=== PATIENT | female | born 1970 | race Two or more races ===

== ENCOUNTER 2023-11-04 00:49 | Emergency (ER) | payer MEDICAID ==
[~2023-11-04] VITALS: Ht 165.1 cm; Wt 121.8 kg
[2023-11-04 02:35] VITALS: TEMP 98.5; O2SAT 96
[2023-11-04] MEDS ORDERED: CYCL-614 PO (02:36)
[2023-11-04] MEDS: ONDANSETRON ODT 4 MG TAB PO ONE (02:44)
[2023-11-04] MEDS: MORPHINE SULFATE INJ 2 MG/ml SYRG IM ONE (02:47)
[2023-11-04 03:22] VITALS: BP 132/76; PULSE 78; RESP 18
== END 2023-11-04 03:29 | disposition home or self-care (01) ==
LOC: ER 00:49
DX: S82.841A Displaced bimalleolar fracture of right lower leg, initial encounter for closed fracture (principal); S70.01XA Contusion of right hip, initial encounter; R07.89 Other chest pain; E03.9 Hypothyroidism, unspecified; G89.29 Other chronic pain; M54.2 Cervicalgia; Z79.899 Other long term (current) drug therapy; W10.8XXA Fall (on) (from) other stairs and steps, initial encounter; Y93.89 Activity, other specified; Y92.89 Other specified places as the place of occurrence of the external cause; Y99.8 Other external cause status
CPT/HCPCS: 29515; 71045; 73502; 73610; 96372; 99284; J2270; Q0162

== ENCOUNTER 2023-11-21 11:04 | Emergency (ER) | payer MEDICAID ==
[~2023-11-21] VITALS: Ht 165.1 cm; Wt 116.8 kg
[~2023-11-21 11:04] MED LIST: CYCL-614 PO
[2023-11-21 11:52] VITALS: PULSE 91; RESP 16; O2SAT 98
[2023-11-21 12:25] LABS: Basophils # (auto) 0.1 10 ^3/uL (0-0.2); Eosinophils # (auto) 0.2 10 ^3/uL (0-0.8); Eosinophils % (auto) 1.8 % (0.0-7.0); Hematocrit 44.5 % (36.0-46.0); Hemoglobin 15.1 g/dL (12.2-16.2); Lymphocytes # (auto) 2.8 10 ^3/uL (0.4-5.4); Lymphocytes % (auto) 22.6 % (10.0-50.0); Mean Corpuscular Hemoglobin 30.3 pg (28.0-32.0); Mean Corpuscular Hgb Conc. 33.9 g/dL (32.0-36.0); Mean Corpuscular Volume 89.5 fL (80.0-100.0); Monocytes # (auto) 0.6 10 ^3/uL (0-1.3); Monocytes % (auto) 5.1 % (0.0-12.0); Neutrophils # (auto) 8.7 10 ^3/uL (1.6-8.6); Neutrophils % (auto) 69.5 % (37.0-80.0); Red Blood Cells 4.98 10^6/uL (4.0-5.20); Red Cell Distribution Width 14.1 % (11.8-14.3); White Blood Cell 12.6 10^3/uL (4.4-10.8)
[2023-11-21 12:44] LABS: INR 1.05 (0.9-1.15); Prothrombin Time 11.1 sec (9.3-11.8)
[2023-11-21 13:01] VITALS: BP 125/82; PULSE 81; RESP 18; TEMP 98.2; O2SAT 95
[2023-11-21 13:04] LABS: Alanine Aminotransferase 17 U/L (7-40); Albumin 4.6 g/dL (3.2-4.8); Alkaline Phosphatase 67 U/L (46-116); Anion Gap 7 (5-15); Aspartate Aminotransferase 11 U/L (13-40); BUN/Creatinine Ratio 8.2 (10.0-20.0); Bilirubin, Total 0.6 mg/dL (0.2-1.0); Blood Urea Nitrogen 8 mg/dL (9-23); Calcium 10.2 mg/dL (8.5-10.1); Carbon Dioxide 25 mmol/L (20-30); Chloride 105 mmol/L (98-107); Glucose 151 mg/dL (74-106); Potassium 3.8 mmol/L (3.5-5.1); Sodium 137 mmol/L (136-145); Total Protein 7.7 g/dL (5.7-8.2)
== END 2023-11-21 13:21 | disposition home or self-care (01) ==
LOC: ER 11:04
DX: S82.201A Unspecified fracture of shaft of right tibia, initial encounter for closed fracture (principal); S82.401A Unspecified fracture of shaft of right fibula, initial encounter for closed fracture; E07.9 Disorder of thyroid, unspecified; Z98.51 Tubal ligation status; W10.8XXA Fall (on) (from) other stairs and steps, initial encounter; Y93.01 Activity, walking, marching and hiking; Y92.89 Other specified places as the place of occurrence of the external cause; Y99.8 Other external cause status
CPT/HCPCS: 36415; 80053; 84484; 85025; 85610

== ENCOUNTER 2023-11-30 10:11 | Inpatient (IN) | payer MEDICAID ==
[2023-11-29] MEDS: SODIUM CHLORIDE 0.9% 1,000 ML IV SCH (21:50)
[~2023-11-30] VITALS: Ht 165.1 cm; Wt 129.5 kg
[2023-11-30 11:27] LABS: Basophils # (auto) 0.1 10 ^3/uL (0-0.2); Basophils % (auto) 1.1 % (0.0-2.0); Eosinophils # (auto) 0.2 10 ^3/uL (0-0.8); Eosinophils % (auto) 1.9 % (0.0-7.0); Hematocrit 44.8 % (36.0-46.0); Hemoglobin 15.2 g/dL (12.2-16.2); Lymphocytes # (auto) 2.4 10 ^3/uL (0.4-5.4); Lymphocytes % (auto) 19.7 % (10.0-50.0); Mean Corpuscular Hemoglobin 30.4 pg (28.0-32.0); Mean Corpuscular Volume 89.3 fL (80.0-100.0); Monocytes # (auto) 0.5 10 ^3/uL (0-1.3); Monocytes % (auto) 4.5 % (0.0-12.0); Neutrophils # (auto) 8.8 10 ^3/uL (1.6-8.6); Neutrophils % (auto) 72.8 % (37.0-80.0); Red Blood Cells 5.02 10^6/uL (4.0-5.20); Red Cell Distribution Width 14.3 % (11.8-14.3); White Blood Cell 12.2 10^3/uL (4.4-10.8)
[2023-11-30 11:28] LABS: Chloride 107 mmol/L (98-107); Potassium 3.7 mmol/L (3.5-5.1); Sodium 141 mmol/L (136-145)
[2023-11-30 11:29] LABS: Anion Gap 7 (5-15); Calcium 9.9 mg/dL (8.5-10.1); Carbon Dioxide 27 mmol/L (20-30)
[2023-11-30 11:34] LABS: BUN/Creatinine Ratio 7.6 (10.0-20.0); Blood Urea Nitrogen 7 mg/dL (9-23); Glucose 155 mg/dL (74-106)
[2023-11-30 11:52] LABS: INR 1.06 (0.9-1.15); Partial Thromboplastin Time 28.7 SEC (24.5-34.5); Prothrombin Time 11.2 sec (9.3-11.8)
[2023-11-30 13:25] VITALS: PULSE 88; RESP 17; O2SAT 95
[2023-11-30] MEDS ORDERED: NITROGLYCERIN 0.4 MG SL TAB SL PRN (13:30)
[2023-11-30] MEDS ORDERED: ONDANSETRON HCL 4 MG/2 ML VIAL IV PRN (13:30)
[2023-11-30] MEDS ORDERED: HYDROcodone-ACET 5/325MG TAB PO PRN (13:30)
[2023-11-30] MEDS ORDERED: DEXTROSE (50%) 50ML SYRG IV PRN (13:30)
[2023-11-30] MEDS ORDERED: MORPHINE SULFATE INJ 2 MG/ml SYRG IV PRN (13:30)
[2023-11-30 15:57] VITALS: BP 131/78; PULSE 83; RESP 18; TEMP 97.7; O2SAT 95
[2023-11-30 16:00] VITALS: PULSE 83; RESP 18; O2SAT 95
[2023-11-30] MEDS: ACCU-CHEK COMFORT CURVE STRIP VI SCH (17:00)
[2023-11-30] MEDS: MORPHINE SULFATE INJ 2 MG/ml SYRG IV PRN (17:33)
[2023-11-30] MEDS: InsuLIN REG 1unit/0.01ml Soln (100units/ml) SC SCH (19:35)
[2023-11-30 20:00] VITALS: PULSE 67; RESP 17; O2SAT 95
[2023-11-30 21:00] VITALS: BP 127/83; PULSE 67; RESP 17; TEMP 98.1; O2SAT 95
[2023-12-01] VITALS (7 sets, daily range): BP systolic 96–122; BP diastolic 48–68; PULSE 57–97; RESP 15–20; TEMP 97.5–99; O2SAT 94–97
[2023-12-01 06:24] LABS: Basophils # (auto) 0.1 10 ^3/uL (0-0.2); Basophils % (auto) 0.7 % (0.0-2.0); Eosinophils # (auto) 0.3 10 ^3/uL (0-0.8); Eosinophils % (auto) 2.9 % (0.0-7.0); Hematocrit 39.8 % (36.0-46.0); Hemoglobin 13.7 g/dL (12.2-16.2); Lymphocytes % (auto) 29.7 % (10.0-50.0); Mean Corpuscular Hemoglobin 30.6 pg (28.0-32.0); Mean Corpuscular Hgb Conc. 34.4 g/dL (32.0-36.0); Mean Corpuscular Volume 88.9 fL (80.0-100.0); Monocytes # (auto) 0.5 10 ^3/uL (0-1.3); Monocytes % (auto) 5.1 % (0.0-12.0); Neutrophils # (auto) 6.2 10 ^3/uL (1.6-8.6); Neutrophils % (auto) 61.6 % (37.0-80.0); Red Blood Cells 4.47 10^6/uL (4.0-5.20); Red Cell Distribution Width 14.4 % (11.8-14.3); White Blood Cell 10.1 10^3/uL (4.4-10.8)
[2023-12-01 06:25] LABS: Alanine Aminotransferase 13 U/L (7-40); Albumin 3.7 g/dL (3.2-4.8); Alkaline Phosphatase 54 U/L (46-116); Anion Gap 7 (5-15); Aspartate Aminotransferase 11 U/L (13-40); BUN/Creatinine Ratio 9.8 (10.0-20.0); Blood Urea Nitrogen 8 mg/dL (9-23); Calcium 9.1 mg/dL (8.7-10.4); Carbon Dioxide 27 mmol/L (20-30); Chloride 109 mmol/L (98-107); Glucose 130 mg/dL (74-106); Potassium 3.7 mmol/L (3.5-5.1); Sodium 143 mmol/L (136-145)
[2023-12-01 06:26] LABS: Bilirubin, Total 0.5 mg/dL (0.2-1.0); Total Protein 6.4 g/dL (5.7-8.2)
[2023-12-01] MEDS ORDERED: fentaNYL CITRATE 5 ML ONE (08:14)
[2023-12-01] MEDS ORDERED: PROPOFOL 10 MG/ML 20 ML IV ONE (09:07)
[2023-12-01] MEDS ORDERED: DexAMETHasone SOD PHOS 10MG/1ML VIAL INJ ONE (09:10)
[2023-12-01] MEDS ORDERED: ONDANSETRON HCL 4 MG/2 ML VIAL ONE (09:10)
[2023-12-01] MEDS ORDERED: MEPERIDINE HCL (25 MG/ML) 1ML VIAL ONE (09:11)
[2023-12-01] MEDS ORDERED: PHENYLEPHRINE HCL 10 MG/ML VL ONE (09:17)
[2023-12-01] MEDS: BUPIVACAINE 0.25% INJ 50ML VIAL ONE (09:50)
[2023-12-01] MEDS ORDERED: HYDROmorphone HCL 2 MG/ML VL/or syr IV PRN (10:15)
[2023-12-01] MEDS ORDERED: MEPERIDINE HCL (25 MG/ML) 1ML VIAL IV PRN (10:15)
[2023-12-01] MEDS: HYDROmorphone HCL 2 MG/ML VL/or syr ONE (10:24)
[2023-12-01] MEDS ORDERED: LEVO150T10 PO (13:32)
[2023-12-01] MEDS: ceFAZolin 2 GM/D5W50ml 50 ML IV SCH (16:57)
[2023-12-01] MEDS: DOCUSATE SOD 100 MG CAP PO PRN (21:41)
[2023-12-02] VITALS (7 sets, daily range): BP systolic 104–145; BP diastolic 61–71; PULSE 71–85; RESP 18–20; TEMP 98–98.8; O2SAT 94–98
[2023-12-02] MEDS: PANTOPRAZOLE 40 MG TAB PO SCH (05:55)
[2023-12-02] MEDS: ENOXAPARIN SOD 40 MG/0.4 ML SYRINGE SC SCH (10:11)
[2023-12-02] MEDS: LEVOTHYROXINE SODIUM 100 MCG/5 ML INJ IV SCH (10:11)
[2023-12-02] MEDS: HYDROcodone-ACET 10/325MG TAB PO PRN (11:31)
[2023-12-02] MEDS: MORPHINE SULFATE INJ 2 MG/ml SYRG IV ONE (18:53)
[2023-12-03] VITALS (7 sets, daily range): BP systolic 110–128; BP diastolic 61–78; PULSE 65–78; RESP 16–20; TEMP 98–98.6; O2SAT 94–95
[2023-12-03 06:38] LABS: Anion Gap 6 (5-15); Carbon Dioxide 28 mmol/L (20-30); Chloride 108 mmol/L (98-107); Sodium 142 mmol/L (136-145)
[2023-12-03 06:39] LABS: Calcium 9.3 mg/dL (8.7-10.4)
[2023-12-03 06:44] LABS: Blood Urea Nitrogen 9 mg/dL (9-23); Glucose 129 mg/dL (74-106)
[2023-12-03 06:46] LABS: BUN/Creatinine Ratio 9.8 (10.0-20.0)
[2023-12-03] MEDS: LIDOCAINE 1% HCL (LOCAL ANESTH.) INJ 20ML MDV ONE (07:31)
[2023-12-03] MEDS: BUPIVACAINE 0.25% INJ 50ML VIAL ONE (07:31)
[2023-12-03] MEDS: ONDANSETRON HCL 4 MG/2 ML VIAL IV ONE (07:31)
[2023-12-03] MEDS: ROPIVACAINE 0.5% (5MG/ML) 20ML AMPULE IJ ONE (07:31)
[2023-12-03] MEDS: ceFAZolin 2 GM/D5W50ml 50 ML IV ONE (07:31)
[2023-12-04] VITALS (7 sets, daily range): BP systolic 90–145; BP diastolic 60–73; PULSE 60–79; RESP 18–20; TEMP 98.1–98.9; O2SAT 94–97
[2023-12-04 08:06] LABS: Free Thyroxine Index 0.7 (1.2-4.9); Thyroxine (T4) 3.8 ug/dL (4.5-12.0)
[2023-12-04] MEDS: OXYCODONE W/ ACETAMINOPHEN 5/325MG TABLET PO PRN (13:29)
[2023-12-04] MEDS: POLYETHYLENE GLYCOL 17 GM PWDR PO ONE (15:19)
[2023-12-05 05:00] VITALS: BP 138/82; PULSE 72; RESP 19; TEMP 98.8; O2SAT 92
[2023-12-05 09:00] VITALS: BP 110/68; PULSE 72; RESP 17; TEMP 97.6; O2SAT 95
[2023-12-05] MEDS: POLYETHYLENE GLYCOL 17 GM PWDR PO PRN (09:46)
[2023-12-05 13:00] VITALS: BP 106/73; PULSE 69; RESP 17; TEMP 98.9; O2SAT 99
[2023-12-05 17:24] VITALS: BP 116/72; PULSE 77; RESP 18; TEMP 98.1; O2SAT 96
[2023-12-05 21:00] VITALS: BP 119/75; PULSE 74; RESP 16; TEMP 89.9; O2SAT 95
[2023-12-06 01:00] VITALS: BP 114/78; PULSE 78; RESP 17; TEMP 98.1; O2SAT 95
[2023-12-06 05:00] VITALS: BP 114/76; PULSE 67; RESP 16; TEMP 98.1; O2SAT 96
[2023-12-06 09:14] VITALS: BP 105/70; PULSE 59; RESP 16; TEMP 97.8; O2SAT 97
[2023-12-06] MEDS: LEVOTHYROXINE SODIUM 50 MCG TAB PO ONE (12:39)
[2023-12-06 13:37] VITALS: BP 115/70; PULSE 71; RESP 16; TEMP 98.9; O2SAT 95
[2023-12-06 16:28] VITALS: BP 131/68; PULSE 74; RESP 16; TEMP 99.2; O2SAT 94
[2023-12-06 21:00] VITALS: BP 123/63; PULSE 76; RESP 20; TEMP 98.9; O2SAT 95
[2023-12-07] VITALS (7 sets, daily range): BP systolic 108–122; BP diastolic 64–74; PULSE 66–82; RESP 16–21; TEMP 97.9–98.7; O2SAT 94–97
[2023-12-07] MEDS: LEVOTHYROXINE SODIUM 50 MCG TAB PO SCH (06:25)
[2023-12-08] VITALS (8 sets, daily range): BP systolic 112–139; BP diastolic 73–92; PULSE 73–96; RESP 16–19; TEMP 97.9–98.8; O2SAT 94–98
[2023-12-08] MEDS ORDERED: LIOTHYRONINE 25 MCG PO ONE (14:45)
[2023-12-08] MEDS ORDERED: LIOT25TA19 PO (14:53)
[2023-12-08] MEDS: LIOTHYRONINE 25 MCG PO SCH (17:28)
[2023-12-08] MEDS: LIOTHYRONINE 25 MCG PO ONE (17:32)
[2023-12-08] MEDS: KETOROLAC TROMETH 30 MG/ML 1ML VIAL IV ONE (20:45)
[2023-12-09 01:00] VITALS: BP 113/61; PULSE 75; RESP 18; TEMP 98.2; O2SAT 96
[2023-12-09 05:00] VITALS: BP 109/58; PULSE 72; RESP 18; TEMP 97.6; O2SAT 97
[2023-12-09 07:30] VITALS: PULSE 78; RESP 16; O2SAT 96
[2023-12-09 08:15] VITALS: BP 113/71; PULSE 71; RESP 18; TEMP 98; O2SAT 97
[2023-12-09 12:15] VITALS: BP 98/65; PULSE 70; RESP 16; TEMP 97.9; O2SAT 95
[2023-12-09] MEDS ORDERED: PERCOT PO (14:33)
[2023-12-09 16:43] VITALS: TEMP 36.6
[2023-12-09] MEDS ORDERED: ASPI-498 OR (17:18)
== END 2023-12-09 16:00 | disposition home or self-care (01) | DRG 313 ==
LOC: ER 10:11 → OVERFLOW 13:27 → WEST WING 15:48
PROVIDERS: ADMIT Nurse Practitioner Family; ATTEND Nurse Practitioner Acute Care
PROC: 0QSJ04Z Reposition Right Fibula with Internal Fixation Device, Open Approach (ICD-10-PCS; principal; 2023-12-01 09:01)
DX: S82.851A Displaced trimalleolar fracture of right lower leg, initial encounter for closed fracture (principal); S72.001A Fracture of unspecified part of neck of right femur, initial encounter for closed fracture; D72.829 Elevated white blood cell count, unspecified; E11.65 Type 2 diabetes mellitus with hyperglycemia; E03.9 Hypothyroidism, unspecified; E66.9 Obesity, unspecified; I10 Essential (primary) hypertension; W01.0XXA Fall on same level from slipping, tripping and stumbling without subsequent striking against object, initial encounter; Z98.51 Tubal ligation status; Z83.3 Family history of diabetes mellitus; Z82.5 Family history of asthma and other chronic lower respiratory diseases; Z82.49 Family history of ischemic heart disease and other diseases of the circulatory system; Y93.89 Activity, other specified; Y92.89 Other specified places as the place of occurrence of the external cause; Y99.8 Other external cause status; Z68.42 Body mass index [BMI] 45.0-49.9, adult
CPT/HCPCS: 36415; 71045; 73600; 73700; 76000; 76536; 80048; 80053; 81025; 82533; 82962; 83036; 84443; 85025; 85610; 85730; 93005; G0378; J1100; J1815; J2001; J2405; J2704; J3490

== ENCOUNTER 2024-07-23 12:59 | Inpatient (IN) | payer MEDICAID ==
[~2024-07-23] VITALS: Ht 165.1 cm; Wt 108.0 kg
[~2024-07-23 12:59] MED LIST changes: +ASPI-498 OR; +LEVO150T10 PO; +LIOT25TA19 PO; +PERCOT PO
--- NOTE | 2024-07-23 13:27 | ED.PDOC ---
History of Present Illness HPI Comments 54F presents to the ER w/ no prior Hx associated to the c/c of Flank pain. Pt reports on having RLQ pain which radiates to the right sided flank which started on July 19. Pt notes on also having Fever, w/ N/V and Blood in the urine. PMHx of DM, Cyst and Thyroid. SHx of Tubal Ligation and Right Ankle. Denies chills, fever, /D, CP or other associated symptom's, modifiers, or recent injuries or sick contact at this time. Chief Complaint: Flank Pain Time Seen by MD: 13:15 Primary Care Provider: SHAHAB Arizmendi Notes: Nurses Notes, Medications, Allergies Allergies: Coded Allergies: NO KNOWN ALLERGIES (Unverified , 11/04/23) Home Meds Active Scripts Aspirin (ASPIRIN 81) 81 Mg Tab, 81 MG OR BID for 30 Days, #60 TAB Prov:ALLIE HANEY WOOD CARVER HAND 12/09/23 Oxycodone W/ Acetaminophen (Percocet 5/325MG) 1 Tab Tb, 1 TAB PO Q4HP PRN for 7 Days, #35 TAB Prov:ALLIE HANEY [employer] CAR[employer] HAND 12/09/23 Cyclobenzaprine HCl (Cyclobenzaprine Hydrochlo) 5 Mg Tab, 5 MG PO QHSP, #14 TAB 0 Refills Prov:KD LANDAVERDE 11/04/23 Reported Medications Liothyronine Sodium (Liothyronine Sodium) 25 Mcg Tab, 25 MCG PO DAILY, TAB 12/08/23 Levothyroxine Sodium (Levothyroxine Sodium) 150 Mcg Tab, 1 TAB PO DAILY 12/01/23 Information Source: Patient Mode of Arrival: Wheelchair Severity: Moderate Timing: Days Duration: Since onset, Days Prehospital treatment: None Past Medical History PAST MEDICAL HISTORY: DM, Thyroid Past Medical History (Other): Cyst Surgical History: Tubal Ligation Surgical History (Other): Right 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 Family History Family History: Reviewed,noncontributory to illness, Family hx of heart madelin, Family hx of lung madelin Social History Smoker: Non-Smoker Alcohol: Denies ETOH Use Drugs: Denies Drug Use Lives In: Home Constitutional: reports: fever; denies: chills, diaphoresis, fatigue, malaise, sweats, weakness, others EENTM: denies: blurred vision, double vision, ear bleeding, ear discharge, ear drainage, ear pain, ear ringing, eye pain, eye redness, hearing loss, mouth pain, mouth swelling, nasal discharge, nose bleeding, nose congestion, nose pain, photophobia, tearing, throat pain, throat swelling, voice changes, others Respiratory: denies: cough, hemoptysis, orthopnea, SOB at rest, shortness of breath, SOB with excertion, stridor, wheezing, others Cardiovascular: denies: chest pain, dizzy spells, diaphoresis, Dyspnea on exertion, edema, irregular heart beat, left arm pain, lightheadedness, palpitations, PND, syncope, others Gastrointestinal: reports: abdominal pain, nausea, vomiting; denies: abdomen distended, blood streaked bowels, constipated, diarrhea, dysphagia, difficulty swallowing, hematemesis, melena, poor appetite, poor fluid intake, rectal bleeding, rectal pain, others Genitourinary: reports: flank pain; denies: abnormal vagina bleeding, burning, dyspareunia, dysuria, frequency, hematuria, incontinence, pain, , vagina discharge, urgency, others Neurological: denies: dizziness, fainting, headache, left sided numbness, left sided weakness, numbness, paresthesia, pre-existing deficit, right sided numbness, right sided weakness, seizure, speech problems, tingling, tremors, weakness, others Musculoskeletal: denies: back pain, gout, joint pain, joint swelling, muscle pain, muscle stiffness, neck pain, others Integumetry: denies: bruises, change in color, change in hair/nails, dryness, laceration, lesions, lumps, rash, wounds, others Allergic/Immunocompromised: denies: Difficulty Healing, Frequent Infections, Hives, Itching, others Hematologic/Lymphatic: denies: anemia, blood clots, easy bleeding, easy bruising, swollen glands, others Endocrine: denies: excessive hunger, excessive sweating, excessive thirst, excessive urination, flushing, intolerance to cold, intolerance to heat, unexplained weight gain, unexplained weight loss, others Psychiatric: denies: anxiety, bipolar disorder, depression, hopeless, panic disorder, schizophrenia, sleepless, suicidal, others All Other Systems: Reviewed and Negative Physical Exam General Appearance: Moderate Distress HEENT: Normal ENT Inspection, Pharynx Normal, TMs Normal Neck: Full Range of Motion, Non-Tender, Normal, Normal Inspection Respiratory: Chest Non-Tender, Lungs Clear, No Accessory Muscle Use, No Respiratory Distress, Normal Breath Sounds Cardiovascular: No Edema, No JVD, No Murmur, No Gallop, Normal Peripheral Pulses, Regular Rate/Rhythm Breast Exam: Deferred Gastrointestinal: No Organomegaly, No Pulsatile Mass, Normal Bowel Sounds, RUQ, Soft, Tenderness Genitalia: Deferred Pelvic: Deferred Rectal: Deferred Extremities: No calf tenderness, Normal capillary refill, Normal inspection, Normal range of motion, Non-tender, No pedal edema Musculoskeletal : Apperance: Normal Neurologic: Alert, hogshead press operator II-XII nml as Tested, No Motor Deficits, Normal Affect, Normal Mood, No Sensory Deficits Cerebellar Function: Normal Reflexes: Normal Skin: Dry, Normal Color, Warm Lymphatic: No Adenopathy Was a procedure done? Was a procedure done?: No Differential Dx Considerations may include: Cholelithiasis, appendicitis, generalized weakness X-Ray, Labs, Meds, VS Vital Signs Date Time Temp Pulse Resp B/P (MAP) Pulse Ox O2 Delivery O2 Flow Rate FiO2 07/23/24 13:33 100 07/23/24 13:09 99.1 112 18 137/59 (85) 96 Lab Test 07/23/24 13:52 07/23/24 13:14 07/23/24 13:11 Range/Units White Blood Count 18.1 H 4.4-10.8 10^3/uL Red Blood Count 5.16 4.0-5.20 10^6/uL Hemoglobin 14.4 12.2-16.2 g/dL Hematocrit 42.3 36.0-46.0 % Mean Corpuscular Volume 82.1 80.0-100.0 fL Mean Corpuscular Hemoglobin 28.0 28.0-32.0 pg Mean Corpuscular Hemoglobin Concent 34.1 32.0-36.0 g/dL Red Cell Distribution Width 14.9 H 11.8-14.3 % Platelet Count 270 140-450 10^3/uL Mean Platelet Volume 9.5 6.9-10.8 fL Neutrophils (%) (Auto) 82.6 H 37.0-80.0 % Lymphocytes (%) (Auto) 8.5 L 10.0-50.0 % Monocytes (%) (Auto) 8.2 0.0-12.0 % Eosinophils (%) (Auto) 0.5 0.0-7.0 % Basophils (%) (Auto) 0.2 0.0-2.0 % Neutrophils # (Auto) 14.9 H 1.6-8.6 10 ^3/uL Lymphocytes # (Auto) 1.5 0.4-5.4 10 ^3/uL Monocytes # (Auto) 1.5 H 0-1.3 10 ^3/uL Eosinophils # (Auto) 0.1 0-0.8 10 ^3/uL Basophils # (Auto) 0 0-0.2 10 ^3/uL Nucleated Red Blood Cells 0.0 % Sodium Level 139 136-145 mmol/L Potassium Level 3.4 L 3.5-5.1 mmol/L Chloride Level 104 98-107 mmol/L Carbon Dioxide Level 24 20-31 mmol/L Anion Gap 11 5-15 Blood Urea Nitrogen 15 9-23 mg/dL Creatinine 0.87 0.550-1.02 mg/dL Glomerular Filtration Rate Calc 80 >90 mL/min BUN/Creatinine Ratio 17.2 10.0-20.0 Serum Glucose 191 H 74-106 mg/dL Calcium Level 10.4 8.7-10.4 mg/dL Total Bilirubin 0.8 0.2-1.0 mg/dL Aspartate Amino Transferase (AST) 15 13-40 U/L Alanine Aminotransferase (ALT) 22 7-40 U/L Alkaline Phosphatase 91 46-116 U/L Total Protein 8.2 5.7-8.2 g/dL Albumin 4.7 3.2-4.8 g/dL Lipase 45 12-53 U/L Urine Color Pending Urine Clarity Pending Urine pH Pending Urine Specific [place] Pending Urine Protein Pending Urine Ketones Pending Urine Blood Pending Urine Nitrite Pending Urine Bilirubin Pending Urine Urobilinogen Pending Urine Leukocyte Esterase Pending Urine RBC Pending Urine Microscopic WBC Pending Urine Squamous Epithelial Cells Pending Urine Bacteria Pending Urine Glucose Pending POC Glucose 202 H 70-106 mg/dl CBC shows an elevated white blood cell count of 18.1 The rest of the CBC is within normal limits The chemistry panel is within normal limits The patient's ultrasound shows IMPRESSION: 1. Cholelithiasis 2. Negative ultrasound Sam's sign 3. 16.22 cm liver with parenchymal changes suggesting steatosis At this time, the chemistry panel is within normal limits The lipase is within normal limits The patient was being admitted to the hospitalist Images Reviewed?: Images reviewed and evaluated by me Time of 1ST Reevaluation: 13:45 Reevaluation 1ST: Unchanged Patient Education/Counseling: Diagnosis, Treatment, Prognosis Family Education/Counseling: No Family Present Departure 1 Departure Time of Disposition: 16:01 Impression: Primary Impression: Intractable abdominal pain Additional Impression: Cholelithiasis Qualified Codes: K80.20 - Calculus of gallbladder without cholecystitis without obstruction Disposition: ADMITTED INPATIENT Admit to: Med Surg Condition: Fair Critical Care Note Critical Care Time?: No Stability Stability form required: Yes Unstable for transfer: ED Physician Assesment (Clinical assesment) Heart Score Heart Score: Heart Score Response (Comments) Value History N/A 0 EKG N/A 0 Age N/A 0 Risk Factors N/A 0 Troponin N/A 0 Total 0 I personally scribed for RAFFI LEYVA MD ([email or web address]) on 07/23/24 at 13:26. Electronically submitted by Marco A Waters ([email or web address]). RAFFI LEYVA MD Jul 23, 2024 13:26
--- NOTE | 2024-07-23 14:07 | DVH ---
INDICATION: pain TECHNIQUE: Multiple real-time sonographic images of the abdomen were obtained. COMPARISON: None FINDINGS: Echogenic changes to the hepatic parenchyma suggesting steatosis.. The liver measures 16.2 2 cm. No intrahepatic biliary ductal dilatation is noted. The gallbladder wall measures 0.12 cm and is unremarkable. Cholelithiasis. The common duct measure s 0.59 cm and is unremarkable. No pericholecystic fluid is noted. Negative ultrasound Sam's sign. The right kidney measures 9.22 cm. No hydronephrosis. The pancreas is not well visualized due to obscuration from bowel gas. The visualized portions of the IVC and aorta are grossly unremarkable. IMPRESSION: 1. Cholelithiasis 2. Negative ultrasound Sam's sign 3. 16.22 cm liver with parenchymal changes suggesting steatosis HS:Y
[2024-07-23 14:37] LABS: Basophils # (auto) 0 10 ^3/uL (0-0.2); Basophils % (auto) 0.2 % (0.0-2.0); Eosinophils # (auto) 0.1 10 ^3/uL (0-0.8); Eosinophils % (auto) 0.5 % (0.0-7.0); Hematocrit 42.3 % (36.0-46.0); Hemoglobin 14.4 g/dL (12.2-16.2); Lymphocytes # (auto) 1.5 10 ^3/uL (0.4-5.4); Lymphocytes % (auto) 8.5 % (10.0-50.0); Mean Corpuscular Hgb Conc. 34.1 g/dL (32.0-36.0); Mean Corpuscular Volume 82.1 fL (80.0-100.0); Monocytes # (auto) 1.5 10 ^3/uL (0-1.3); Monocytes % (auto) 8.2 % (0.0-12.0); Neutrophils # (auto) 14.9 10 ^3/uL (1.6-8.6); Neutrophils % (auto) 82.6 % (37.0-80.0); Platelet Count (auto) 270 10^3/uL (140-450); Red Blood Cells 5.16 10^6/uL (4.0-5.20); Red Cell Distribution Width 14.9 % (11.8-14.3); White Blood Cell 18.1 10^3/uL (4.4-10.8)
[2024-07-23 14:59] LABS: Alanine Aminotransferase 22 U/L (7-40); Albumin 4.7 g/dL (3.2-4.8); Alkaline Phosphatase 91 U/L (46-116); Anion Gap 11 (5-15); Aspartate Aminotransferase 15 U/L (13-40); BUN/Creatinine Ratio 17.2 (10.0-20.0); Bilirubin, Total 0.8 mg/dL (0.2-1.0); Blood Urea Nitrogen 15 mg/dL (9-23); Carbon Dioxide 24 mmol/L (20-31); Chloride 104 mmol/L (98-107); Lipase 45 U/L (12-53); Sodium 139 mmol/L (136-145)
[2024-07-23 15:03] LABS: Calcium 10.4 mg/dL (8.7-10.4); Glucose 191 mg/dL (74-106); Potassium 3.4 mmol/L (3.5-5.1); Total Protein 8.2 g/dL (5.7-8.2)
[2024-07-23 16:19] LABS: Urine Bacteria FEW /hpf (None Seen); Urine Blood 2+ /uL (Negative); Urine Clarity Turbid (Clear); Urine Color Yellow (Yellow); Urine Hyaline Cast FEW /lpf (0 - 2); Urine Mucus FEW (None Seen); Urine Protein, UAD 1+ (Negative); Urine Squamous Epithelial Cell FEW /hpf (<5); Urine Urobilinogen Normal (Negative); Urine WBC 68 /HPF (0-5); Urine pH 5.5 (5.0-9.0)
[2024-07-23] MEDS: PANTOPRAZOLE 40 MG/10 ML VIAL INJ IV ONE (19:44)
[2024-07-23] MEDS: ONDANSETRON HCL 4 MG/2 ML VIAL IV ONE (19:44)
[2024-07-23] MEDS: SODIUM CHLORIDE 0.9% 1,000 ML IVB ONE (19:44)
[2024-07-23] MEDS: MORPHINE SULFATE 4 MG/ML SYR/VIAL IV ONE (19:48)
[2024-07-23 20:14] VITALS: PULSE 104; RESP 18; O2SAT 97
[2024-07-23] MEDS ORDERED: DOCUSATE SOD 100 MG CAP PO PRN (20:30)
[2024-07-23] MEDS ORDERED: DEXTROSE (50%) 50ML SYRG IV PRN (20:30)
[2024-07-23] MEDS ORDERED: ONDANSETRON HCL 4 MG/2 ML VIAL IV PRN (20:30)
[2024-07-23] MEDS: InsuLIN REG 1unit/0.01ml Soln (100units/ml) SC SCH (22:00)
[2024-07-23] MEDS: ACCU-CHEK COMFORT CURVE STRIP VI SCH (22:00)
--- NOTE | 2024-07-23 22:02 | DVHHP2 ---
History of Present Illness Reason for Visit: Intractable abdominal pain History of Present Illness The patient is a 54-year-old female with past medical history of diabetes mellitus, thyroid disease, and cysts who presented to [facility] with complaint of flank pain. Patient reports symptoms progressively get worse with right lower quadrant abdominal pain, radiating the right-sided flank, rating 7/10 numeric scale, getting worse that prompted this visit. Patient was seen and evaluated in the ED, laboratory data shows WBC 18.1, platelets 270, sodium 139, potassium 3.4, BUN 15, creatinine 087, GFR 80, glucose 191, lipase 45, blood pressure 136/64, heart rate 104, temperature 99.3 F, O2 saturation 99% on room air. Gallbladder ultrasound revealing cholelithiasis, 16.22 cm liver with parenchymal changes suggesting steatosis, negative ultrasound Sam's sign. Urinalysis positive for tract infection. Patient was antibiotic regimen Rocephin, please see medication orders section in the computer. On my assessment, patient denied chest pain, no headache, no dizziness, no shortness of breath, no nausea, no vomiting, no fever, no chills. Patient was admitted for further evaluation and medical management. Past Medical History DM, Thyroid, Cyst Past Surgical History Tubal Ligation, Right ankle surgery Family History Reviewed, noncontributory to the management of this case. Past Social History The patient lives at home, denies smoking, alcohol or illicit drugs abuse. Review of Systems Constitutional: No: Fever, Chills, Sweats, Weakness, Malaise, Other Eyes: No: Pain, Vision change, Conjunctivae inflammation, Eyelid inflammation, Other, Redness ENT: No: Ear pain, Ear discharge, Nose pain, Nose discharge, Nose congestion, Mouth pain, Mouth swelling, Throat pain, Throat swelling, Other Respiratory: No: Cough, Dry, Shortness of breath, SOB with excertion, Wheezing, Hemoptysis, Pleuritic Pain, Sputum, Wheezing, Other Cardiovascular: No: Chest Pain, Palpitations, Orthopnea, Paroxysmal Noc. Dyspnea, Edema, Lt Headedness, Other Gastrointestinal: Nausea, Vomiting, Abdominal Pain; No: Diarrhea, Constipation, Melena, Hematochezia, Other Genitourinary: No Dysuria, No Frequency, No Incontinence, No Hematuria, No Retention; Other (Flank pain) Musculoskeletal: No: other, neck pain, shoulder pain, arm pain, back pain, hand pain, leg pain, foot pain Skin: No: Rash, Lesions, Jaundice, Bruising, Other Neurological: No: Weakness, Numbness, Incoordination, Change in speech, Confusion, Seizures, Other Allergies: Coded Allergies: NO KNOWN ALLERGIES (Unverified , 11/04/23) Medications Current Medications Medications Dose Ordered Sig/Tian Route Start Time Stop Time Status Last Admin Dose Admin Aspirin 81 mg DAILY PO 07/24/24 10:00 Pantoprazole Sodium 40 mg DAILY IV 07/24/24 10:00 Ceftriaxone Sodium 50 ml @ 100 mls/hr DAILY@09 IV 07/24/24 09:00 Levothyroxine Sodium 150 mcg QAM@0600 PO 07/24/24 06:00 Diagnostic Test (Pha) 1 strip ACHS 07/23/24 22:00 Insulin Human Regular HS SC 07/23/24 22:00 Insulin Human Regular AC SC 07/24/24 07:00 Dextrose 50 ml UD PRN IV 07/23/24 20:30 Sodium Chloride 1,000 ml @ 60 mls/hr [id number] IV 07/23/24 20:30 Acetaminophen/ Hydrocodone Bitart 1 tab Q4HP PRN PO 07/23/24 20:30 Ondansetron HCl 4 mg Q4HP PRN IV 07/23/24 20:30 Docusate Sodium 100 mg BIDPRN PRN PO 07/23/24 20:30 Acetaminophen 650 mg Q6HP PRN PO 07/23/24 20:30 Exam Vital Signs Vital Signs Date Time Temp Pulse Resp B/P (MAP) Pulse Ox O2 Delivery O2 Flow Rate FiO2 07/23/24 20:34 88 16 115/66 (82) 100 07/23/24 20:14 Room Air* 0 21 07/23/24 19:56 99.3 99.3 General Appearance: Alert, Oriented X3, Cooperative, No acute distress HEENT: Atraumatic, PERRLA, EOMI, Mucous membr. moist/pink Respiratory: Clear to auscultation, Normal air movement Cardiovascular: Regular rate, Normal S1, Normal S2, No murmurs, Gallops Abdominal: Normal bowel sounds, Soft, No hepatospenomegaly, No masses, Other (Reports tenderness) Extremities: No clubbing, No cyanosis, No edema, Normal pulses, No tenderness/swelling Skin: No rashes, No breakdown, No significant lesion Neuro: Normal gait, Normal speech, Strength at 5/5 X4 ext, Normal tone, Sensat ion intact, Cranial nerves 3-12 NL, Reflexes 2+ Psych/Mental Status: Mental status NL, Mood NL Labs/Xrays Labs Test 07/23/24 13:52 07/23/24 13:14 07/23/24 13:11 Range/Units White Blood Count 18.1 H 4.4-10.8 10^3/uL Red Blood Count 5.16 4.0-5.20 10^6/uL Hemoglobin 14.4 12.2-16.2 g/dL Hematocrit 42.3 36.0-46.0 % Mean Corpuscular Volume 82.1 80.0-100.0 fL Mean Corpuscular Hemoglobin 28.0 28.0-32.0 pg Mean Corpuscular Hemoglobin Concent 34.1 32.0-36.0 g/dL Red Cell Distribution Width 14.9 H 11.8-14.3 % Platelet Count 270 140-450 10^3/uL Mean Platelet Volume 9.5 6.9-10.8 fL Neutrophils (%) (Auto) 82.6 H 37.0-80.0 % Lymphocytes (%) (Auto) 8.5 L 10.0-50.0 % Monocytes (%) (Auto) 8.2 0.0-12.0 % Eosinophils (%) (Auto) 0.5 0.0-7.0 % Basophils (%) (Auto) 0.2 0.0-2.0 % Neutrophils # (Auto) 14.9 H 1.6-8.6 10 ^3/uL Lymphocytes # (Auto) 1.5 0.4-5.4 10 ^3/uL Monocytes # (Auto) 1.5 H 0-1.3 10 ^3/uL Eosinophils # (Auto) 0.1 0-0.8 10 ^3/uL Basophils # (Auto) 0 0-0.2 10 ^3/uL Nucleated Red Blood Cells 0.0 % Sodium Level 139 136-145 mmol/L Potassium Level 3.4 L 3.5-5.1 mmol/L Chloride Level 104 98-107 mmol/L Carbon Dioxide Level 24 20-31 mmol/L Anion Gap 11 5-15 Blood Urea Nitrogen 15 9-23 mg/dL Creatinine 0.87 0.550-1.02 mg/dL Glomerular Filtration Rate Calc 80 >90 mL/min BUN/Creatinine Ratio 17.2 10.0-20.0 Serum Glucose 191 H 74-106 mg/dL Calcium Level 10.4 8.7-10.4 mg/dL Total Bilirubin 0.8 0.2-1.0 mg/dL Aspartate Amino Transferase (AST) 15 13-40 U/L Alanine Aminotransferase (ALT) 22 7-40 U/L Alkaline Phosphatase 91 46-116 U/L Total Protein 8.2 5.7-8.2 g/dL Albumin 4.7 3.2-4.8 g/dL Lipase 45 12-53 U/L Thyroid Stimulating Hormone (TSH) 0.05 L 0.55-4.78 uIU/mL Urine Color Yellow Yellow Urine Clarity Turbid H Clear Urine pH 5.5 5.0-9.0 Urine Specific [place] 1.020 1.001-1.035 Urine Protein 1+ H Negative Urine Ketones Negative Negative Urine Blood 2+ H Negative /uL Urine Nitrite Negative Negative Urine Bilirubin Negative Negative Urine Urobilinogen Normal Negative mg/dL Urine Leukocyte Esterase 2+ Negative /uL Urine RBC 43 0 - 4 /hpf Urine Microscopic WBC 68 H 0-5 /HPF Urine Squamous Epithelial Cells Few <5 /hpf Urine Bacteria Few H None Seen /hpf Urine Hyaline Casts Few 0 - 2 /lpf Urine Mucus Few None Seen Urine Glucose Normal Normal mg/dL POC Glucose 202 H 70-106 mg/dl PATIENT: ESTEBAN THOMSON ACCT: [id number] UNIT: [id number] : 1970 LOC: ER ROOM / BED: / AGE / SEX: 54 / F ADM STATUS: REG ER SERVICE [id number] ORDERING PHYSICIAN: RAFFI LEYVA MD PROCEDURE(s): GBUS - GALLBLADDER REASON: pain ORDER NUMBER(s): [id number], ACCESSION NUMBER(s): [id number] INDICATION: pain TECHNIQUE: Multiple real-time sonographic images of the abdomen were obtained. COMPARISON: None FINDINGS: Echogenic changes to the hepatic parenchyma suggesting steatosis. The liver measures 16.22 cm. No intrahepatic biliary ductal dilatation is noted. The gallbladder wall measures 0.12 cm and is unremarkable. Cholelithiasis. The common duct measures 0.59 cm and is unremarkable. No pericholecystic fluid is noted. Negative ultrasound Sam's sign. The right kidney measures 9.22 cm. No hydronephrosis. The pancreas is not well visualized due to obscuration from bowel gas. The visualized portions of the IVC and aorta are grossly unremarkable. IMPRESSION: 1. Cholelithiasis 2. Negative ultrasound Sam's sign 3. 16.22 cm liver with parenchymal changes suggesting steatosis Assessment/Plan Assessment/Plan Intractable abdominal pain Leukocytosis, unspecified Cholelithiasis Hypokalemia Diabetes mellitus with hyperglycemia Urinary tract infection Calculus of gallbladder without cholecystitis without obstruction Plan 1. Admit to med surge unit 2. Breathing treatment 3. Pain control management 4. IV antibiotic management 5. Management of fluids and electrolytes 6. Consultation for hospitalist 7. Diagnostic test gallbladder ultrasound 8. DVT prophylaxis-on aspirin 9. Repeat labs CBC, CMP in a.m. 10. Home medication reviewed and reconciled 11. Continue with current medical management 12. Treatment plan discussed with patient and RN. Patient verbalized ayah rao. Plan discussed with: Patient, Other (RN) My Orders Orders - ANTHONY ALSTON DNP Procedure Category Date Status Time Consistent DIET 07/24/24 Transmitted Carb(Ccho)Diabetes Breakfast Aspirin Tablet PHA 07/24/24 In Process 10:00 Pantoprazole PHA 07/24/24 In Process (Protonix) 10:00 Urine Bacterial TREVOR 07/23/24 In Process Culture 20:20 Ceftriaxone 1gm/50ml PHA 07/24/24 In Process D5w (Rocephin) 09:00 Levothyroxine Tablet PHA 07/24/24 In Process (Synthroid Tablet) 06:00 Glucose Blood PHA 07/23/24 In Process (Accu-Chek Comfort 22:00 Insulin R (Human) PHA 07/23/24 In Process (Insulin R) 22:00 Insulin R (Human) PHA 07/24/24 In Process (Insulin R) 07:00 Dextrose 50% Syringe PHA 07/23/24 In Process 20:30 Allergies HYACINTH 07/23/24 In Process 20:20 Code Status CODE 07/23/24 Transmitted 20:20 Sodium Chloride 0.9% PHA 07/23/24 In Process 20:30 Oxygen Per Hour RT 07/23/24 Transmitted 20:20 Hydrocodone-Acet PHA 2/28/25 In Process 5/325mg Tab ([place] 20:30 Ondansetron Hcl PHA 07/23/24 In Process (Zofran) 20:30 Docusate Sodium PHA 07/23/24 In Process Capsule (Colace 20:30 Complete Blood Count LAB 07/24/24 Verified 04:00 Comprehensive LAB 07/24/24 Verified Metabolic Panel 04:00 Condition: Serious HYACINTH 07/23/24 In Process 20:20 Acetaminophen Tablet PHA 07/23/24 In Process (Tylenol Tablet) 20:30 Bedrest With Bathroom HYACINTH 07/23/24 In Process Privileg 20:20 Sequential HYACINTH 07/23/24 In Process Compression Device Problem List: (1) Intractable abdominal pain (2) Hypokalemia (3) Leukocytosis, unspecified (4) Cholelithiasis (5) Urinary tract infection (6) Calculus of gallbladder without cholecystitis without obstruction (7) Diabetes mellitus with hyperglycemia Date of Service: Jul 23, 2024 Billing Provider: ANTHONY ALSTON DNP Common Visit Codes: 48700-HFPBOWC INP/OBS CARE (HIGH) ANTHONY ALSTON DNP Jul 23, 2024 22:02
[2024-07-23] MEDS ORDERED: MORPHINE SULFATE INJ 2 MG/ml SYRG IV PRN (22:15)
[2024-07-23] MEDS ORDERED: NITROGLYCERIN 0.4 MG SL TAB SL PRN (22:15)
[2024-07-23 23:06] VITALS: BP 115/66; PULSE 77; PULSE 88; RESP 16; RESP 18; TEMP 99.3; O2SAT 100; O2SAT 95
[2024-07-24] VITALS (7 sets, daily range): BP systolic 102–129; BP diastolic 54–68; PULSE 69–96; RESP 16–21; TEMP 97.7–99; O2SAT 92–98
[2024-07-24] MEDS ORDERED: OXYC30TA77 PO (00:08)
[2024-07-24] MEDS ORDERED: METF-370 PO (00:08)
[2024-07-24] MEDS ORDERED: PERCOT PO (00:08)
[2024-07-24] MEDS: SODIUM CHLORIDE 0.9% 1,000 ML IV SCH (01:52)
[2024-07-24] MEDS: HYDROcodone-ACET 5/325MG TAB PO PRN (01:53)
[2024-07-24] MEDS: POTASSIUM CHL 20 Meq TABLET PO ONE (01:53)
[2024-07-24] MEDS: cefTRIAXone 1GM/50ML D5W 50 ML IV ONE (01:54)
[2024-07-24] MEDS: LEVOTHYROXINE SODIUM 50 MCG TAB PO SCH (06:00)
[2024-07-24 06:28] LABS: Basophils # (auto) 0.1 10 ^3/uL (0-0.2); Basophils % (auto) 0.4 % (0.0-2.0); Eosinophils # (auto) 0.4 10 ^3/uL (0-0.8); Hematocrit 38.9 % (36.0-46.0); Lymphocytes # (auto) 2.9 10 ^3/uL (0.4-5.4); Lymphocytes % (auto) 20.1 % (10.0-50.0); Mean Corpuscular Hemoglobin 27.7 pg (28.0-32.0); Mean Corpuscular Hgb Conc. 33.3 g/dL (32.0-36.0); Mean Corpuscular Volume 83.1 fL (80.0-100.0); Monocytes # (auto) 1.6 10 ^3/uL (0-1.3); Monocytes % (auto) 10.8 % (0.0-12.0); Neutrophils # (auto) 9.4 10 ^3/uL (1.6-8.6); Neutrophils % (auto) 65.7 % (37.0-80.0); Platelet Count (auto) 269 10^3/uL (140-450); Red Blood Cells 4.68 10^6/uL (4.0-5.20); Red Cell Distribution Width 14.9 % (11.8-14.3); White Blood Cell 14.4 10^3/uL (4.4-10.8)
[2024-07-24] MEDS: InsuLIN REG 1unit/0.01ml Soln (100units/ml) SC SCH (06:39)
[2024-07-24 06:51] LABS: Alanine Aminotransferase 22 U/L (7-40); Albumin 4.3 g/dL (3.2-4.8); Alkaline Phosphatase 91 U/L (46-116); Anion Gap 11 (5-15); Aspartate Aminotransferase 15 U/L (13-40); BUN/Creatinine Ratio 14.2 (10.0-20.0); Bilirubin, Total 0.4 mg/dL (0.2-1.0); Blood Urea Nitrogen 15 mg/dL (9-23); Calcium 9.5 mg/dL (8.7-10.4); Carbon Dioxide 24 mmol/L (20-31); Chloride 105 mmol/L (98-107); Potassium 3.6 mmol/L (3.5-5.1); Sodium 140 mmol/L (136-145); Total Protein 7.7 g/dL (5.7-8.2)
[2024-07-24 06:55] LABS: Glucose 146 mg/dL (74-106)
[2024-07-24] MEDS: cefTRIAXone 1GM/50ML D5W 50 ML IV SCH (10:03)
[2024-07-24] MEDS: ASPirin 81 mg TAB PO SCH (10:04)
[2024-07-24] MEDS: PANTOPRAZOLE 40 MG/10 ML VIAL INJ IV SCH (10:04)
--- NOTE | 2024-07-24 13:58 | DVHPN2 ---
Subjective The patient seen and examined at bedside. Complain of nausea vomiting and abdominal pain Reviewed: Care Plan, H&P, Labs, Medications, Previous Orders, Radiology Changes from previous H/P or p: No Changes Eyes: No Pain, No Vision change, No Conjunctivae inflammation, No Eyelid inflammation, No Other, No Redness ENT: No Ear pain, No Ear discharge, No Nose pain, No Nose discharge, No Nose congestion, No Mouth pain, No Mouth swelling, No Throat pain, No Throat swelling, No Other Cardiovascular: No Chest Pain, No Palpitations, No Orthopnea, No Paroxysmal Noc. Dyspnea, No Edema, No Lt Headedness, No Other Respiratory: No Cough, No Dry, No Shortness of breath, No SOB with excertion, No Wheezing, No Hemoptysis, No Pleuritic Pain, No Sputum, No Other Gastrointestinal: Nausea, Vomiting, Abdominal Pain; No Diarrhea, No Constipation, No Melena, No Hematochezia, No Other Genitourinary: No Dysuria, No Frequency, No Incontinence, No Hematuria, No Retention; Other (Flank pain) Musculoskeletal: No other, No neck pain, No shoulder pain, No arm pain, No back pain, No hand pain, No leg pain, No foot pain Skin: No Rash, No Lesions, No Jaundice, No Bruising, No Other Objective Vitals Vital Signs Date Time Temp Pulse Resp B/P (MAP) Pulse Ox O2 Delivery O2 Flow Rate FiO2 07/24/24 13:08 99.0 81 16 112/63 (79) 94 99.0 07/23/24 23:06 Room Air* 0 21 Intake/Output Intake and Output 07/24/24 07:00 Intake Total 1500 ml Balance 1500 ml Intake Oral 500 ml IV Total 1000 ml # Voids 2 General Appearance: Alert, Cooperative, No acute distress HEENT: Atraumatic, PERRLA, EOMI, Mucous membr. moist/pink Neck: Supple Lungs: Clear to auscultation, Normal air movement Cardiovascular: Regular rate, Normal S1, Normal S2, No murmurs, Gallops, Rubs Abdomen: Normal bowel sounds, Soft, Other (Tender on palpation diffuse in all four quadrant) Neuro: Cranial nerves 3-12 NL Medications Current Medications Medications Dose Ordered Sig/Tian Route Start Time Stop Time Status Last Admin Dose Admin Aspirin 81 mg DAILY PO 07/24/24 10:00 07/24/24 10:04 81 MG Pantoprazole Sodium 40 mg DAILY IV 07/24/24 10:00 07/24/24 10:04 40 MG Ceftriaxone Sodium 50 ml @ 100 mls/hr DAILY@09 IV 07/24/24 09:00 07/24/24 10:03 100 MLS/HR Levothyroxine Sodium 150 mcg QAM@0600 PO 07/24/24 06:00 Diagnostic Test (Pha) 1 strip ACHS 07/23/24 22:00 07/24/24 11:59 1 STRIP Insulin Human Regular HS SC 07/23/24 22:00 Insulin Human Regular AC SC 07/24/24 07:00 07/24/24 12:00 6 UNITS Dextrose 50 ml UD PRN IV 07/23/24 20:30 Sodium Chloride 1,000 ml @ 60 mls/hr [id number] IV 07/23/24 20:30 07/24/24 01:52 60 MLS/HR Acetaminophen/ Hydrocodone Bitart 1 tab Q4HP PRN PO 07/23/24 20:30 07/24/24 10:05 1 TAB Ondansetron HCl 4 mg Q4HP PRN IV 07/23/24 20:30 Docusate Sodium 100 mg BIDPRN PRN PO 07/23/24 20:30 Acetaminophen 650 mg Q6HP PRN PO 07/23/24 20:30 Nitroglycerin 0.4 mg Q5MINP PRN SL 07/23/24 22:15 Morphine Sulfate 2 mg Q30M PRN IV 07/23/24 22:15 Laboratory Results Laboratory Tests 07/24/24 05:24 Chemistry Test 07/24/24 05:24 Albumin 4.3 g/dL (3.2-4.8) Calcium Level 9.5 mg/dL (8.7-10.4) Total Protein 7.7 g/dL (5.7-8.2) LFT Test 07/24/24 05:24 Alanine Aminotransferase (ALT) 22 U/L (7-40) Alkaline Phosphatase 91 U/L (46-116) Aspartate Amino Transferase (AST) 15 U/L (13-40) Total Bilirubin 0.4 mg/dL (0.2-1.0) Urinalysis Test 07/23/24 13:14 Urine Color Yellow (Yellow) Urine Clarity Turbid (Clear) H Urine pH 5.5 (5.0-9.0) Urine Specific [place] 1.020 (1.001-1.035) Urine Protein 1+ (Negative) H Urine Ketones Negative (Negative) Urine Blood 2+ /uL (Negative) H Urine Nitrite Negative (Negative) Urine Bilirubin Negative (Negative) Urine Urobilinogen Normal mg/dL (Negative) Urine Leukocyte Esterase 2+ /uL (Negative) Urine RBC 43 /hpf (0 - 4) Urine Microscopic WBC 68 /HPF (0-5) H Urine Squamous Epithelial Cells Few /hpf (<5) Urine Bacteria Few /hpf (None Seen) H Urine Hyaline Casts Few /lpf (0 - 2) Urine Mucus Few (None Seen) Urine Glucose Normal mg/dL (Normal) Microbiology Microbiology Date/Time Source Procedure Growth Status 07/23/24 13:14 Voided Urine Urine Culture - Preliminary Resulted Labs and/or images reviewed: Labs reviewed by me Assessment/Plan Assessment/Plan Intractable abdominal pain Leukocytosis, unspecified Cholelithiasis Hypokalemia Diabetes mellitus with hyperglycemia Urinary tract infection Calculus of gallbladder without cholecystitis without obstruction Plan Continuing current management. Continuing with pain medication. Continuing with IV antibiotic. Continuing with sliding scale insulin. Continuing with clear liquid diet. We will order HIDA scan if the patient is still continuing to have pain. This medical document was created using an electronic medical record system with [employer] direct computerized dictation system. Although this document has been carefully reviewed, there may still be some phonetic and typographical errors. These areas are purely typographical due to imperfections of the software programs, and do not reflect any compromise in the patient's medical care. Plan discussed with: Patient Date of Service: Jul 24, 2024 Billing Provider: ASHLEY ROBERTSON MD Common Visit Codes: [id number] INP/OBS CARE(HIGH) ASHLEY ROBERTSON MD Jul 24, 2024 13:58
[2024-07-24] MEDS ORDERED: OXYCODONE HCL 20 MG PO PRN (14:45)
[2024-07-24] MEDS: OXYCODONE W/ ACETAMINOPHEN 5/325MG TABLET PO PRN (15:05)
[2024-07-24] MEDS ORDERED: OXYCODONE HCL 20 MG PO SCH (22:00)
[2024-07-24] MEDS ORDERED: OXYCODONE W/ ACETAMINOPHEN 5/325MG TABLET PO SCH (22:00)
[2024-07-25 01:00] VITALS: BP 104/63; PULSE 96; RESP 19; TEMP 98.2; O2SAT 100
[2024-07-25 05:00] VITALS: BP 104/49; PULSE 77; RESP 21; TEMP 98.6; O2SAT 94
[2024-07-25] MEDS: LIOTHYRONINE SODIUM 25 MCG PO SCH (05:58)
[2024-07-25] MEDS: LEVOTHYROXINE SODIUM 50 MCG TAB PO SCH (05:58)
[2024-07-25 09:00] VITALS: BP 104/60; PULSE 70; RESP 18; TEMP 97.7; O2SAT 96
[2024-07-25] MEDS: ASPirin-EC 81 mg tab PO SCH (10:11)
[2024-07-25 13:00] VITALS: BP 100/59; PULSE 75; RESP 18; TEMP 98.2; O2SAT 95
[2024-07-25 17:00] VITALS: BP 108/51; PULSE 71; RESP 18; TEMP 98.1; O2SAT 94
[2024-07-25 21:00] VITALS: BP 128/64; PULSE 80; RESP 18; TEMP 98.2; O2SAT 96
[2024-07-25] MEDS: oxyCODONE HCL 5MG TAB PO PRN (22:02)
--- NOTE | 2024-07-25 22:21 | DVHPN2 ---
Subjective The patient seen and examined at bedside. Complain of nausea vomiting and abdominal pain Reviewed: Care Plan, H&P, Labs, Medications, Previous Orders, Radiology Changes from previous H/P or p: No Changes Eyes: No Pain, No Vision change, No Conjunctivae inflammation, No Eyelid inflammation, No Other, No Redness ENT: No Ear pain, No Ear discharge, No Nose pain, No Nose discharge, No Nose congestion, No Mouth pain, No Mouth swelling, No Throat pain, No Throat swelling, No Other Cardiovascular: No Chest Pain, No Palpitations, No Orthopnea, No Paroxysmal Noc. Dyspnea, No Edema, No Lt Headedness, No Other Respiratory: No Cough, No Dry, No Shortness of breath, No SOB with excertion, No Wheezing, No Hemoptysis, No Pleuritic Pain, No Sputum, No Other Gastrointestinal: Nausea, Vomiting, Abdominal Pain; No Diarrhea, No Constipation, No Melena, No Hematochezia, No Other Genitourinary: No Dysuria, No Frequency, No Incontinence, No Hematuria, No Retention; Other (Flank pain) Musculoskeletal: No other, No neck pain, No shoulder pain, No arm pain, No back pain, No hand pain, No leg pain, No foot pain Skin: No Rash, No Lesions, No Jaundice, No Bruising, No Other Objective Vitals Vital Signs Date Time Temp Pulse Resp B/P (MAP) Pulse Ox O2 Delivery O2 Flow Rate FiO2 07/25/24 21:00 98.2 80 18 128/64 (85) 96 98.2 07/25/24 08:00 Room Air* 0 21 Intake/Output Intake and Output 07/25/24 07:00 Intake Total 1475 ml Balance 1475 ml Intake Oral 1165 ml IV Total 310 ml # Voids 9 General Appearance: Alert, Cooperative, No acute distress HEENT: Atraumatic, PERRLA, EOMI, Mucous membr. moist/pink Neck: Supple Lungs: Clear to auscultation, Normal air movement Cardiovascular: Regular rate, Normal S1, Normal S2, No murmurs, Gallops, Rubs Abdomen: Normal bowel sounds, Soft, Other (Tender on palpation diffuse in all four quadrant) Neuro: Cranial nerves 3-12 NL Medications Current Medications Medications Dose Ordered Sig/Tian Route Start Time Stop Time Status Last Admin Dose Admin Pantoprazole Sodium 40 mg DAILY IV 07/24/24 10:00 07/25/24 10:12 40 MG Ceftriaxone Sodium 50 ml @ 100 mls/hr DAILY@09 IV 07/24/24 09:00 07/25/24 10:13 100 MLS/HR Diagnostic Test (Pha) 1 strip ACHS 07/23/24 22:00 07/25/24 18:23 1 STRIP Insulin Human Regular HS SC 07/23/24 22:00 07/25/24 22:01 3 UNITS Insulin Human Regular AC SC 07/24/24 07:00 07/25/24 18:24 3 UNITS Dextrose 50 ml UD PRN IV 07/23/24 20:30 Sodium Chloride 1,000 ml @ 60 mls/hr [id number] IV 07/23/24 20:30 07/25/24 05:58 60 MLS/HR Acetaminophen/ Hydrocodone Bitart 1 tab Q4HP PRN PO 07/23/24 20:30 Hold 07/24/24 10:05 1 TAB Ondansetron HCl 4 mg Q4HP PRN IV 07/23/24 20:30 Docusate Sodium 100 mg BIDPRN PRN PO 07/23/24 20:30 Acetaminophen 650 mg Q6HP PRN PO 07/23/24 20:30 Nitroglycerin 0.4 mg Q5MINP PRN SL 07/23/24 22:15 Morphine Sulfate 2 mg Q30M PRN IV 07/23/24 22:15 Aspirin 81 mg DAILY PO 07/25/24 10:00 07/25/24 10:11 81 MG Levothyroxine Sodium 150 mcg DAILY@0600 PO 07/25/24 06:00 Patient Own Medication 25 mcg DAILY@0600 PO 07/25/24 06:00 Oxycodone/ Acetaminophen 2 tab TID PRN PO 07/24/24 14:45 07/25/24 13:27 2 TAB Oxycodone HCl 20 mg Q4HP PRN PO 07/24/24 15:00 07/25/24 22:02 20 MG Laboratory Results Laboratory Tests 07/24/24 05:24 Urinalysis Test 07/23/24 13:14 Urine Color Yellow (Yellow) Urine Clarity Turbid (Clear) H Urine pH 5.5 (5.0-9.0) Urine Specific [place] 1.020 (1.001-1.035) Urine Protein 1+ (Negative) H Urine Ketones Negative (Negative) Urine Blood 2+ /uL (Negative) H Urine Nitrite Negative (Negative) Urine Bilirubin Negative (Negative) Urine Urobilinogen Normal mg/dL (Negative) Urine Leukocyte Esterase 2+ /uL (Negative) Urine RBC 43 /hpf (0 - 4) Urine Microscopic WBC 68 /HPF (0-5) H Urine Squamous Epithelial Cells Few /hpf (<5) Urine Bacteria Few /hpf (None Seen) H Urine Hyaline Casts Few /lpf (0 - 2) Urine Mucus Few (None Seen) Urine Glucose Normal mg/dL (Normal) Microbiology Microbiology Date/Time Source Procedure Growth Status 07/24/24 05:24 Blood Blood Culture - Preliminary NO GROWTH AFTER 24 HOURS OF INCUBATION. Resulted 07/23/24 13:14 Voided Urine Urine Culture - Final Escherichia coli Complete Labs and/or images reviewed: Labs reviewed by me Assessment/Plan Assessment/Plan Intractable abdominal pain Leukocytosis, unspecified Cholelithiasis Hypokalemia Diabetes mellitus with hyperglycemia Urinary tract infection Calculus of gallbladder without cholecystitis without obstruction Plan Continuing current management. Continuing with pain medication. Continuing with IV antibiotic. Continuing with sliding scale insulin. Continuing with clear liquid diet. We will order HIDA scan if the patient is still continuing to have pain. This medical document was created using an electronic medical record system with [employer] direct computerized dictation system. Although this document has been carefully reviewed, there may still be some phonetic and typographical errors. These areas are purely typographical due to imperfections of the software programs, and do not reflect any compromise in the patient's medical care. Plan discussed with: Patient, Spouse Date of Service: Jul 25, 2024 Billing Provider: ASHLEY ROBERTSON MD Common Visit Codes: [id number] INP/OBS CARE(HIGH) ASHLEY ROBERTSON MD Jul 25, 2024 22:21
[2024-07-26] VITALS (7 sets, daily range): BP systolic 121–146; BP diastolic 63–74; PULSE 66–94; RESP 18; TEMP 98.1–98.7; O2SAT 92–96
[2024-07-26 06:29] LABS: Basophils # (auto) 0.1 10 ^3/uL (0-0.2); Basophils % (auto) 0.5 % (0.0-2.0); Eosinophils # (auto) 0.4 10 ^3/uL (0-0.8); Eosinophils % (auto) 3.2 % (0.0-7.0); Hematocrit 37.6 % (36.0-46.0); Hemoglobin 12.1 g/dL (12.2-16.2); Lymphocytes # (auto) 2.7 10 ^3/uL (0.4-5.4); Lymphocytes % (auto) 23.7 % (10.0-50.0); Mean Corpuscular Hgb Conc. 32.3 g/dL (32.0-36.0); Mean Corpuscular Volume 83.7 fL (80.0-100.0); Monocytes # (auto) 0.9 10 ^3/uL (0-1.3); Monocytes % (auto) 7.9 % (0.0-12.0); Neutrophils # (auto) 7.3 10 ^3/uL (1.6-8.6); Neutrophils % (auto) 64.7 % (37.0-80.0); Platelet Count (auto) 301 10^3/uL (140-450); Red Blood Cells 4.49 10^6/uL (4.0-5.20); Red Cell Distribution Width 14.9 % (11.8-14.3); White Blood Cell 11.3 10^3/uL (4.4-10.8)
[2024-07-26 06:59] LABS: Anion Gap 9 (5-15); Carbon Dioxide 25 mmol/L (20-31); Potassium 4.4 mmol/L (3.5-5.1); Sodium 142 mmol/L (136-145)
[2024-07-26 07:00] LABS: Calcium 9.7 mg/dL (8.7-10.4)
[2024-07-26 07:05] LABS: Blood Urea Nitrogen 12 mg/dL (9-23)
[2024-07-26 07:08] LABS: Chloride 108 mmol/L (98-107); Glucose 131 mg/dL (74-106)
--- NOTE | 2024-07-26 09:36 | DVH ---
Procedure: NM NM HIDA SCAN Exam Date: 07/26/2024 08:09 AM Clinical History: Rule out acaculus cholecystitis Comparison Study: Gallbladder ultrasound dated 07/23/2024 Technique: Following the intravenous administration of 4.2 mCi of technetium 99m labeled Choletec mul tiple planar abdominal planar images were obtained in anterior projection in 1 minute intervals for 4 5 minutes . Right lateral images were obtained at 50 minutes after injection. Findings: The liver appears grossly normal in size. There is no abnormal persistence of the cardiac or blood po ol activity. There is prompt visualization of the gallbladder and excretion of activity into the smal l bowel. Impression: 1. No evidence of cystic duct obstruction.
--- NOTE | 2024-07-26 16:15 | DVHPN2 ---
Subjective Seen and examined at bedside. C/o flank pain. Cont Abx for now. Reviewed: Care Plan, H&P, Labs, Medications, Previous Orders, Radiology Changes from previous H/P or p: No Changes Eyes: No Pain, No Vision change, No Conjunctivae inflammation, No Eyelid inflammation, No Other, No Redness ENT: No Ear pain, No Ear discharge, No Nose pain, No Nose discharge, No Nose congestion, No Mouth pain, No Mouth swelling, No Throat pain, No Throat swelling, No Other Cardiovascular: No Chest Pain, No Palpitations, No Orthopnea, No Paroxysmal Noc. Dyspnea, No Edema, No Lt Headedness, No Other Respiratory: No Cough, No Dry, No Shortness of breath, No SOB with excertion, No Wheezing, No Hemoptysis, No Pleuritic Pain, No Sputum, No Other Gastrointestinal: No Nausea, No Vomiting, No Abdominal Pain, No Diarrhea, No Constipation, No Melena, No Hematochezia, No Other Genitourinary: No Dysuria, No Frequency, No Incontinence, No Hematuria, No Retention, No Other Musculoskeletal: No other, No neck pain, No shoulder pain, No arm pain, No back pain, No hand pain, No leg pain, No foot pain Skin: No Rash, No Lesions, No Jaundice, No Bruising, No Other Objective Vitals Vital Signs Date Time Temp Pulse Resp B/P (MAP) Pulse Ox O2 Delivery O2 Flow Rate FiO2 07/26/24 13:00 98.5 93 18 146/71 (96) 96 98.5 07/26/24 08:00 Room Air* 0 21 Intake/Output Intake and Output 07/26/24 07:00 Intake Total 2691 ml Balance 2691 ml Intake Oral 1936 ml IV Total 755 ml # Voids 10 General Appearance: Alert, Cooperative, No acute distress HEENT: Atraumatic, PERRLA, EOMI, Mucous membr. moist/pink Neck: Supple Lungs: Clear to auscultation, Normal air movement Cardiovascular: Regular rate, Normal S1, Normal S2, No murmurs, Gallops, Rubs Abdomen: Normal bowel sounds, Soft, Other (Tender on palpation diffuse in all four quadrant) Neuro: Cranial nerves 3-12 NL Medications Current Medications Medications Dose Ordered Sig/Tian Route Start Time Stop Time Status Last Admin Dose Admin Pantoprazole Sodium 40 mg DAILY IV 07/24/24 10:00 07/26/24 10:20 40 MG Ceftriaxone Sodium 50 ml @ 100 mls/hr DAILY@09 IV 07/24/24 09:00 07/26/24 10:20 100 MLS/HR Diagnostic Test (Pha) 1 strip ACHS 07/23/24 22:00 07/26/24 11:43 1 STRIP Insulin Human Regular HS SC 07/23/24 22:00 07/25/24 22:01 3 UNITS Insulin Human Regular AC SC 07/24/24 07:00 07/26/24 11:30 2 UNITS Dextrose 50 ml UD PRN IV 07/23/24 20:30 Sodium Chloride 1,000 ml @ 60 mls/hr [id number] IV 07/23/24 20:30 07/26/24 16:08 60 MLS/HR Acetaminophen/ Hydrocodone Bitart 1 tab Q4HP PRN PO 07/23/24 20:30 Hold 07/24/24 10:05 1 TAB Ondansetron HCl 4 mg Q4HP PRN IV 07/23/24 20:30 Docusate Sodium 100 mg BIDPRN PRN PO 07/23/24 20:30 Acetaminophen 650 mg Q6HP PRN PO 07/23/24 20:30 Nitroglycerin 0.4 mg Q5MINP PRN SL 07/23/24 22:15 Morphine Sulfate 2 mg Q30M PRN IV 07/23/24 22:15 Aspirin 81 mg DAILY PO 07/25/24 10:00 07/26/24 10:20 81 MG Levothyroxine Sodium 150 mcg DAILY@0600 PO 07/25/24 06:00 07/26/24 06:06 150 MCG Patient Own Medication 25 mcg DAILY@0600 PO 07/25/24 06:00 07/26/24 06:06 25 MCG Oxycodone/ Acetaminophen 2 tab TID PRN PO 07/24/24 14:45 07/25/24 13:27 2 TAB Oxycodone HCl 20 mg Q4HP PRN PO 07/24/24 15:00 07/26/24 10:21 20 MG Laboratory Results Laboratory Tests 07/26/24 05:45 Chemistry Test 07/26/24 05:45 Calcium Level 9.7 mg/dL (8.7-10.4) Urinalysis Test 07/23/24 13:14 Urine Color Yellow (Yellow) Urine Clarity Turbid (Clear) H Urine pH 5.5 (5.0-9.0) Urine Specific [place] 1.020 (1.001-1.035) Urine Protein 1+ (Negative) H Urine Ketones Negative (Negative) Urine Blood 2+ /uL (Negative) H Urine Nitrite Negative (Negative) Urine Bilirubin Negative (Negative) Urine Urobilinogen Normal mg/dL (Negative) Urine Leukocyte Esterase 2+ /uL (Negative) Urine RBC 43 /hpf (0 - 4) Urine Microscopic WBC 68 /HPF (0-5) H Urine Squamous Epithelial Cells Few /hpf (<5) Urine Bacteria Few /hpf (None Seen) H Urine Hyaline Casts Few /lpf (0 - 2) Urine Mucus Few (None Seen) Urine Glucose Normal mg/dL (Normal) Microbiology Microbiology Date/Time Source Procedure Growth Status 07/24/24 05:24 Blood Blood Culture - Preliminary NO GROWTH AFTER 48 HOURS OF INCUBATION. 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
[2024-07-27 05:00] VITALS: BP 123/65; PULSE 84; RESP 18; TEMP 99.8; O2SAT 94
[2024-07-27 06:46] LABS: INR 1.03 (0.9-1.15); Partial Thromboplastin Time 27.1 SEC (24.5-34.5); Prothrombin Time 10.9 sec (9.3-11.8)
[2024-07-27 06:51] LABS: Alanine Aminotransferase 16 U/L (7-40); Alkaline Phosphatase 75 U/L (46-116); Anion Gap 9 (5-15); BUN/Creatinine Ratio 12.8 (10.0-20.0); Blood Urea Nitrogen 10 mg/dL (9-23); Calcium 9.9 mg/dL (8.7-10.4); Carbon Dioxide 26 mmol/L (20-31); Chloride 105 mmol/L (98-107); Potassium 4.1 mmol/L (3.5-5.1); Sodium 140 mmol/L (136-145)
[2024-07-27 06:52] LABS: Bilirubin, Total 0.4 mg/dL (0.2-1.0)
[2024-07-27 07:07] LABS: Aspartate Aminotransferase 12 U/L (13-40); Glucose 125 mg/dL (74-106)
[2024-07-27 09:20] VITALS: BP 118/50; PULSE 85; RESP 17; TEMP 98.1; O2SAT 95
[2024-07-27] MEDS: ACETAMINOPHEN 325 MG TAB PO PRN (10:19)
[2024-07-27] MEDS ORDERED: CEPH250C PO (11:50)
[2024-07-27] MEDS ORDERED: POLY335015 PO (11:52)
--- NOTE | 2024-07-27 11:56 | DVHDS2 ---
Discharge Summary Date of Admission Jul 23, 2024 at 22:01 Date of Discharge: Jul 27, 2024 Admitting Diagnosis SEPSIS Labs/Diagnostic Data: Laboratory Results Test 07/27/24 06:05 07/27/24 05:38 07/26/24 05:45 07/23/24 13:52 POC Glucose 139 mg/dl (70-106) Prothrombin Time 10.9 sec (9.3-11.8) Prothrombin Time INR 1.03 (0.9-1.15) Activated Partial Thromboplast Time 27.1 SEC (24.5-34.5) Sodium Level 140 mmol/L (136-145) Potassium Level 4.1 mmol/L (3.5-5.1) Chloride Level 105 mmol/L (98-107) Carbon Dioxide Level 26 mmol/L (20-31) Anion Gap 9 (5-15) Blood Urea Nitrogen 10 mg/dL (9-23) Creatinine 0.78 mg/dL (0.550-1.02) Glomerular Filtration Rate Calc 91 mL/min (>90) BUN/Creatinine Ratio 12.8 (10.0-20.0) Serum Glucose 125 mg/dL (74-106) Calcium Level 9.9 mg/dL (8.7-10.4) Total Bilirubin 0.4 mg/dL (0.2-1.0) Aspartate Amino Transferase (AST) 12 U/L (13-40) Alanine Aminotransferase (ALT) 16 U/L (7-40) Alkaline Phosphatase 75 U/L (46-116) Total Protein 7.0 g/dL (5.7-8.2) Albumin 4.0 g/dL (3.2-4.8) White Blood Count 11.3 10^3/uL (4.4-10.8) Red Blood Count 4.49 10^6/uL (4.0-5.20) Hemoglobin 12.1 g/dL (12.2-16.2) Hematocrit 37.6 % (36.0-46.0) Mean Corpuscular Volume 83.7 fL (80.0-100.0) Mean Corpuscular Hemoglobin 27.0 pg (28.0-32.0) Mean Corpuscular Hemoglobin Concent 32.3 g/dL (32.0-36.0) Red Cell Distribution Width 14.9 % (11.8-14.3) Platelet Count 301 10^3/uL (140-450) Mean Platelet Volume 9.3 fL (6.9-10.8) Neutrophils (%) (Auto) 64.7 % (37.0-80.0) Lymphocytes (%) (Auto) 23.7 % (10.0-50.0) Monocytes (%) (Auto) 7.9 % (0.0-12.0) Eosinophils (%) (Auto) 3.2 % (0.0-7.0) Basophils (%) (Auto) 0.5 % (0.0-2.0) Neutrophils # (Auto) 7.3 10 ^3/uL (1.6-8.6) Lymphocytes # (Auto) 2.7 10 ^3/uL (0.4-5.4) Monocytes # (Auto) 0.9 10 ^3/uL (0-1.3) Eosinophils # (Auto) 0.4 10 ^3/uL (0-0.8) Basophils # (Auto) 0.1 10 ^3/uL (0-0.2) Nucleated Red Blood Cells 0.0 % Hemoglobin A1c 7.1 % A1C (<5.7) Lipase 45 U/L (12-53) Thyroid Stimulating Hormone (TSH) 0.05 uIU/mL (0.55-4.78) Test 07/23/24 13:14 Urine Color Yellow (Yellow) Urine Clarity Turbid (Clear) Urine pH 5.5 (5.0-9.0) Urine Specific [place] 1.020 (1.001-1.035) Urine Protein 1+ (Negative) Urine Ketones Negative (Negative) Urine Blood 2+ /uL (Negative) Urine Nitrite Negative (Negative) Urine Bilirubin Negative (Negative) Urine Urobilinogen Normal mg/dL (Negative) Urine Leukocyte Esterase 2+ /uL (Negative) Urine RBC 43 /hpf (0 - 4) Urine Microscopic WBC 68 /HPF (0-5) Urine Squamous Epithelial Cells Few /hpf (<5) Urine Bacteria Few /hpf (None Seen) Urine Hyaline Casts Few /lpf (0 - 2) Urine Mucus Few (None Seen) Urine Glucose Normal mg/dL (Normal) Other Laboratory Tests 07/27/24 05:38 07/26/24 05:45 Brief Hx & Hospital Course: The patient is a 54-year-old female with past medical history of diabetes mellitus, thyroid disease, and cysts who presented to [facility] with complaint of flank pain. Patient reports symptoms progressively get worse with right lower quadrant abdominal pain, radiating the right-sided flank, rating 7/10 numeric scale, getting worse that prompted this visit. Patient was admitted for Sepsis due to UTI. Patient improved with antibiotics. Patient will be discharged home with Keflex. We have stopped Synthroid due to TSH <0.05. Patient advised to hold synthroid and have repeat TSH done with PCP in 7-10 days. 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 Patient was counseled about treatment plan, medications, possible side effects, patientverbalized understanding. All questions were answered to the best of my ability. This discharge took greater then 30 minutes in planning, reviewing documentation, counseling the patient, and discussing with other team members." ASSESSMENT ASSESSMENT Assessment Date of Service: Jul 27, 2024 Billing Provider: ANNEMARIE KEENAN MD Common Visit Codes: [id number] DISCH DAY >30min ANNEMARIE KEENAN MD Jul 27, 2024 11:56
[2024-07-27 14:05] VITALS: BP 105/51; PULSE 75; RESP 17; TEMP 97.5; O2SAT 94
--- NOTE | 2024-07-27 14:25 | ECG ---
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
--- NOTE | 2024-07-27 14:44 | DVHINCON2 ---
Date of service: Jul 27, [address] Perkins Reason for Consultation Right flank pain and difficulty eating History of Present Illness The patient is a 54-year-old female with past medical history of diabetes mellitus, thyroid disease, and cysts who presented to [facility] with complaint of R flank pain. Patient reports symptoms progressively get worse with right lower quadrant abdominal pain, radiating the right-sided flank, rating 7/10 numeric scale, getting worse that prompted this visit. Gallbladder ultrasound revealing cholelithiasis, 16.22 cm liver with parenchymal changes suggesting steatosis, negative ultrasound Sam's sign. Urinalysis positive for tract infection. Patient was antibiotic regimen Rocephin, patient was having some trouble eating yesterday but she is feeling better today and there was no nausea vomiting Her right flank pain is also improving. Patient has not had any prior colonoscopy. Past Medical History Past Medical History DM, Thyroid, Cyst Past Surgical History Past Surgical History Tubal Ligation, Right ankle surgery Family History: Asthma G8 BROTHER (chilhood) Allergies: Coded Allergies: NO KNOWN ALLERGIES (Unverified , 11/04/23) Home Meds Active Scripts Polyethylene Glycol 3350 (Miralax) 17 Gm Pow, 17 GM PO QAM for 30 Days, #120 POW Prov:ANNEMARIE PERKINS MD 07/27/24 Cephalexin (KEFLEX CAPSULE) 250 Mg Cp, 500 MG PO TID for 7 Days, #21 CAP Prov:ANNEMARIE PERKINS MD 07/27/24 Aspirin (ASPIRIN 81) 81 Mg Tab, 81 MG OR BID for 30 Days, #60 TAB Prov:ALLIE HANEY NP 12/09/23 Reported Medications Metformin Hydrochloride (Metformin Hcl) 500 Mg Tab, 500 MG PO IBID for 30 Days, MG 07/24/24 Oxycodone HCl (Oxycontin) 30 Mg Tab, 20 MG PO BID for Severe Pain, TAB 07/24/24 Oxycodone W/ Acetaminophen (Percocet 5/325MG) 1 Tab Tb, 2 TAB PO TID, #90 TAB 07/24/24 Liothyronine Sodium (Liothyronine Sodium) 25 Mcg Tab, 25 MCG PO DAILY, TAB 12/08/23 Levothyroxine Sodium (Levothyroxine Sodium) 150 Mcg Tab, 1 TAB PO DAILY 12/01/23 Vital Signs Vital Signs Date Time Temp Pulse Resp B/P (MAP) Pulse Ox O2 Delivery O2 Flow Rate FiO2 07/27/24 14:05 97.5 75 17 105/51 (69) 94 97.5 07/27/24 08:00 Room Air* 0 21 Physical Exam General Appearance: Alert, Cooperative, No acute distress HEENT: Atraumatic, PERRLA, EOMI, Mucous membr. moist/pink Neck: Supple Lungs: Clear to auscultation, Normal air movement Cardiovascular: Regular rate, Normal S1, Normal S2, No murmurs, Gallops, Rubs Abdomen: Normal bowel sounds, Soft, nontender, no rebound Neuro: Cranial nerves 3-12 NL Labs/Diagnostic Data Labs Test 07/27/24 06:05 07/27/24 05:38 07/26/24 05:45 07/23/24 13:52 Range/Units POC Glucose 139 H 70-106 mg/dl Prothrombin Time 10.9 9.3-11.8 sec Prothrombin Time INR 1.03 0.9-1.15 Activated Partial Thromboplast Time 27.1 24.5-34.5 SEC Sodium Level 140 136-145 mmol/L Potassium Level 4.1 3.5-5.1 mmol/L Chloride Level 105 98-107 mmol/L Carbon Dioxide Level 26 20-31 mmol/L Anion Gap 9 5-15 Blood Urea Nitrogen 10 9-23 mg/dL Creatinine 0.78 0.550-1.02 mg/dL Glomerular Filtration Rate Calc 91 >90 mL/min BUN/Creatinine Ratio 12.8 10.0-20.0 Serum Glucose 125 H 74-106 mg/dL Calcium Level 9.9 8.7-10.4 mg/dL Total Bilirubin 0.4 0.2-1.0 mg/dL Aspartate Amino Transferase (AST) 12 L 13-40 U/L Alanine Aminotransferase (ALT) 16 7-40 U/L Alkaline Phosphatase 75 46-116 U/L Total Protein 7.0 5.7-8.2 g/dL Albumin 4.0 3.2-4.8 g/dL White Blood Count 11.3 H 4.4-10.8 10^3/uL Red Blood Count 4.49 4.0-5.20 10^6/uL Hemoglobin 12.1 L 12.2-16.2 g/dL Hematocrit 37.6 36.0-46.0 % Mean Corpuscular Volume 83.7 80.0-100.0 fL Mean Corpuscular Hemoglobin 27.0 L 28.0-32.0 pg Mean Corpuscular Hemoglobin Concent 32.3 32.0-36.0 g/dL Red Cell Distribution Width 14.9 H 11.8-14.3 % Platelet Count 301 140-450 10^3/uL Mean Platelet Volume 9.3 6.9-10.8 fL Neutrophils (%) (Auto) 64.7 37.0-80.0 % Lymphocytes (%) (Auto) 23.7 10.0-50.0 % Monocytes (%) (Auto) 7.9 0.0-12.0 % Eosinophils (%) (Auto) 3.2 0.0-7.0 % Basophils (%) (Auto) 0.5 0.0-2.0 % Neutrophils # (Auto) 7.3 1.6-8.6 10 ^3/uL Lymphocytes # (Auto) 2.7 0.4-5.4 10 ^3/uL Monocytes # (Auto) 0.9 0-1.3 10 ^3/uL Eosinophils # (Auto) 0.4 0-0.8 10 ^3/uL Basophils # (Auto) 0.1 0-0.2 10 ^3/uL Nucleated Red Blood Cells 0.0 % Hemoglobin A1c 7.1 H <5.7 % A1C Lipase 45 12-53 U/L Thyroid Stimulating Hormone (TSH) 0.05 L 0.55-4.78 uIU/mL Test 07/23/24 13:14 Range/Units Urine Color Yellow Yellow Urine Clarity Turbid H Clear Urine pH 5.5 5.0-9.0 Urine Specific [place] 1.020 1.001-1.035 Urine Protein 1+ H Negative Urine Ketones Negative Negative Urine Blood 2+ H Negative /uL Urine Nitrite Negative Negative Urine Bilirubin Negative Negative Urine Urobilinogen Normal Negative mg/dL Urine Leukocyte Esterase 2+ Negative /uL Urine RBC 43 0 - 4 /hpf Urine Microscopic WBC 68 H 0-5 /HPF Urine Squamous Epithelial Cells Few <5 /hpf Urine Bacteria Few H None Seen /hpf Urine Hyaline Casts Few 0 - 2 /lpf Urine Mucus Few None Seen Urine Glucose Normal Normal mg/dL Microbiology Date/Time Source Procedure Growth Status 07/24/24 05:24 Blood Blood Culture - Preliminary NO GROWTH AFTER 72 HOURS OF INCUBATION. Resulted 07/23/24 13:14 Voided Urine Urine Culture - Final Escherichia coli Complete HIDA scan negative Problems(with codes): (1) E. coli UTI (2) Urinary tract infection (3) Leukocytosis, unspecified (4) Intractable abdominal pain (5) Cholelithiasis (6) Diabetes mellitus with hyperglycemia Plan/Recommendation Plan Patient's symptoms appear to be likely related to E coli UTI with possible pyelonephritis Nausea vomiting abdominal pain due to the which is now resolved Continue antibiotics Stool softeners for constipation Discharge planning is in progress Patient is advised to follow up with my office as an outpatient next available appointment for elective colonoscopy Plan discussed with: Patient, Other (Dr Perkins) MICHEAL MCCAIN MD Jul 27, 2024 14:44
[2024-07-27] MEDS: POLYETHYLENE GLYCOL 17 GM PWDR PO ONE (14:45)
== END 2024-07-27 16:05 | disposition home or self-care (01) | DRG 720 ==
LOC: ER 12:59 → OVERFLOW 22:01 → EAST 07-24 13:33
PROVIDERS: ADMIT Internal Medicine; ATTEND Internal Medicine
DX: A41.9 Sepsis, unspecified organism (principal); K76.0 Fatty (change of) liver, not elsewhere classified; E11.65 Type 2 diabetes mellitus with hyperglycemia; E87.6 Hypokalemia; E66.01 Morbid (severe) obesity due to excess calories; Z68.39 Body mass index [BMI] 39.0-39.9, adult; K80.20 Calculus of gallbladder without cholecystitis without obstruction; N39.0 Urinary tract infection, site not specified; Z82.5 Family history of asthma and other chronic lower respiratory diseases; Z79.899 Other long term (current) drug therapy; Z79.82 Long term (current) use of aspirin
CPT/HCPCS: 36415; 76705; 78226; 80048; 80053; 81001; 82962; 83036; 83690; 84443; 85025; 85610; 85730; 87040; 87086; 87088; 87186; 93005; 96361; 96374; 96375; G0378; J1815; J2405; J2470

== ENCOUNTER 2025-02-13 16:21 | Inpatient (IN) | payer MEDICAID ==
[~2025-02-13] VITALS: Ht 165.1 cm; Wt 118.2 kg
[2025-02-13] MEDS: ACCU-CHEK COMFORT CURVE STRIP VI SCH (01:05)
[2025-02-13] MEDS: InsuLIN REG 1unit/0.01ml Soln (100units/ml) SC SCH (02:16)
[~2025-02-13 16:21] MED LIST changes: +CEPH250C PO; -CYCL-614 PO; -LEVO150T10 PO; -LIOT25TA19 PO; +METF-370 PO; +OXYC30TA77 PO; -PERCOT PO; +POLY335015 PO
--- NOTE | 2025-02-13 16:43 | ED.PDOC ---
GI ASSESSMENT HPI Comments This is a 54 year old female presenting to the ED with chief complaint of abdominal pain. Patient reports that she has been experiencing epigastric abdominal pain with associated nausea, vomiting, and diarrhea since 4am this morning. Patient relays that she has history of gallstones. Patient denies any fever, chills, dysuria, hematuria, flank pain, dizziness, or melena. Chief Complaint: Abdominal Pain Time Seen by MD: 16:41 Primary Care Provider: NONE Reviewed Notes: Nurses Notes, Medications, Allergies Allergies: Coded Allergies: NO KNOWN ALLERGIES (Unverified , 11/04/23) Home Meds Active Scripts Polyethylene Glycol 3350 (Miralax) 17 Gm Pow, 17 GM PO QAM for 30 Days, #120 POW Prov:ANNEMARIE KEENAN MD 07/27/24 Cephalexin (KEFLEX CAPSULE) 250 Mg Cp, 500 MG PO TID for 7 Days, #21 CAP Prov:ANNEMARIE KEENAN MD 07/27/24 Aspirin (ASPIRIN 81) 81 Mg Tab, 81 MG OR BID for 30 Days, #60 TAB Prov:ALLIE HANEY NP 12/09/23 Reported Medications Metformin Hydrochloride (Metformin Hcl) 500 Mg Tab, 500 MG PO IBID for 30 Days, MG 07/24/24 Oxycodone HCl (Oxycontin) 30 Mg Tab, 20 MG PO BID for Severe Pain, TAB 07/24/24 Information Source: Patient, Spouse Mode of Arrival: Wheelchair Timing: Hours Duration: Since onset Prehospital treatment: None Quality: Sharp Vomitus: Watery Stool: Watery Severity: Moderate Recent: None Recent Hx of: None Pain Location: Epigastric Modifying Factors: Nothing Associated sign and symptoms: Nausea, Vomiting, Diarrhea, Abdominal Pain Past Medical History PAST MEDICAL HISTORY: DM, Gallstones, Thyroid 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 Family History Family History: Reviewed,noncontributory to illness, Family hx of heart madelin, Family hx of lung madelin Social History Smoker: Non-Smoker Alcohol: Denies ETOH Use Drugs: Denies Drug Use Lives In: Home Constitutional: denies: chills, diaphoresis, fatigue, fever, malaise, sweats, weakness, others EENTM: denies: blurred vision, double vision, ear bleeding, ear discharge, ear drainage, ear pain, ear ringing, eye pain, eye redness, hearing loss, mouth pain, mouth swelling, nasal discharge, nose bleeding, nose congestion, nose pain, photophobia, tearing, throat pain, throat swelling, voice changes, others Respiratory: denies: cough, hemoptysis, orthopnea, SOB at rest, shortness of breath, SOB with excertion, stridor, wheezing, others Cardiovascular: denies: chest pain, dizzy spells, diaphoresis, Dyspnea on exertion, edema, irregular heart beat, left arm pain, lightheadedness, palpitations, PND, syncope, others Gastrointestinal: reports: abdominal pain, diarrhea, nausea, vomiting; denies: abdomen distended, blood streaked bowels, constipated, dysphagia, difficulty swallowing, hematemesis, melena, poor appetite, poor fluid intake, rectal bleeding, rectal pain, others Genitourinary: denies: abnormal vagina bleeding, burning, dyspareunia, dysuria, flank pain, frequency, hematuria, incontinence, pain, , vagina discharge, urgency, others Neurological: denies: dizziness, fainting, headache, left sided numbness, left sided weakness, numbness, paresthesia, pre-existing deficit, right sided numbness, right sided weakness, seizure, speech problems, tingling, tremors, weakness, others Musculoskeletal: denies: back pain, gout, joint pain, joint swelling, muscle pain, muscle stiffness, neck pain, others Integumetry: denies: bruises, change in color, change in hair/nails, dryness, laceration, lesions, lumps, rash, wounds, others Allergic/Immunocompromised: denies: Difficulty Healing, Frequent Infections, Hives, Itching, others Hematologic/Lymphatic: denies: anemia, blood clots, easy bleeding, easy bruising, swollen glands, others Endocrine: denies: excessive hunger, excessive sweating, excessive thirst, excessive urination, flushing, intolerance to cold, intolerance to heat, unexplained weight gain, unexplained weight loss, others Psychiatric: denies: anxiety, bipolar disorder, depression, hopeless, panic disorder, schizophrenia, sleepless, suicidal, others All Other Systems: Reviewed and Negative Physical Exam General Appearance: Mild Distress, Obese HEENT: Other (Pupils and face symmetric. Moist mucous membranes.) Neck: Full Range of Motion, Normal Inspection Respiratory: Lungs Clear, No Accessory Muscle Use, No Respiratory Distress, Normal Breath Sounds Cardiovascular: No Edema, No JVD, Regular Rate/Rhythm Breast Exam: Deferred Gastrointestinal: Epigastric, RUQ, Soft, Tenderness Genitalia: Deferred Pelvic: Deferred Rectal: Deferred Extremities: Normal range of motion, No pedal edema Neurologic: Alert (Oriented x4), Normal Affect, Normal Mood, Other (No gross focal deficit) Cerebellar Function: NOT DONE Reflexes: NOT DONE Skin: Dry, Normal Color, Warm Lymphatic: NOT DONE Was a procedure done? Was a procedure done?: No GI differential Dx Differential Diagnosis: Cholangitis, Cholecystitis, Constipation, Gastritis/PUD, Gastroenteritis, Hepatitis, Inflammatory BD, UTI, Dehydration, Electrolyte Imbalance, Food Poisoning, Bacterial, Viral, Impaction, Ischemic Bowel, Stress Ulcer X-Ray, Labs, Meds, VS Vital Signs Date Time Temp Pulse Resp B/P (MAP) Pulse Ox O2 Delivery O2 Flow Rate FiO2 02/13/25 17:44 Room Air* 0 21 02/13/25 17:42 97.4 74 14 152/87 (108) 95 97.4 02/13/25 17:41 74 14 152/87 02/13/25 16:23 99.1 84 16 144/87 96 99.1 Lab Test 02/13/25 17:58 02/13/25 16:56 Range/Units Troponin I High Sensitivity 3 L 4 </=34 ng/L White Blood Count 16.1 H 4.4-10.8 10^3/uL Red Blood Count 5.60 H 4.0-5.20 10^6/uL Hemoglobin 15.8 12.2-16.2 g/dL Hematocrit 45.5 36.0-46.0 % Mean Corpuscular Volume 81.2 80.0-100.0 fL Mean Corpuscular Hemoglobin 28.2 28.0-32.0 pg Mean Corpuscular Hemoglobin Concent 34.7 32.0-36.0 g/dL Red Cell Distribution Width 14.7 H 11.8-14.3 % Platelet Count 267 140-450 10^3/uL Mean Platelet Volume 9.9 6.9-10.8 fL Neutrophils (%) (Auto) 88.6 H 37.0-80.0 % Lymphocytes (%) (Auto) 8.1 L 10.0-50.0 % Monocytes (%) (Auto) 2.4 0.0-12.0 % Eosinophils (%) (Auto) 0.1 0.0-7.0 % Basophils (%) (Auto) 0.8 0.0-2.0 % Neutrophils # (Auto) 14.3 H 1.6-8.6 10 ^3/uL Lymphocytes # (Auto) 1.3 0.4-5.4 10 ^3/uL Monocytes # (Auto) 0.4 0-1.3 10 ^3/uL Eosinophils # (Auto) 0 0-0.8 10 ^3/uL Basophils # (Auto) 0.1 0-0.2 10 ^3/uL Nucleated Red Blood Cells 0.0 % Sodium Level 140 136-145 mmol/L Potassium Level 3.9 3.5-5.1 mmol/L Chloride Level 102 98-107 mmol/L Carbon Dioxide Level 26 20-31 mmol/L Anion Gap 12 5-15 Blood Urea Nitrogen 9 9-23 mg/dL Creatinine 0.82 0.550-1.02 mg/dL Glomerular Filtration Rate Calc 85 >90 mL/min BUN/Creatinine Ratio 11.0 10.0-20.0 Serum Glucose 184 H 74-106 mg/dL Lactic Acid Level 1.4 0.4-2.0 mmol/L Calcium Level 11.0 H 8.7-10.4 mg/dL Total Bilirubin 0.5 0.2-1.0 mg/dL Aspartate Amino Transferase (AST) 22 13-40 U/L Alanine Aminotransferase (ALT) 32 7-40 U/L Alkaline Phosphatase 98 46-116 U/L Total Protein 8.2 5.7-8.2 g/dL Albumin 4.7 3.2-4.8 g/dL Lipase 42 12-53 U/L Current Medications Medications (Trade) Dose Ordered Sig/Tian Route Start Time Stop Time Status Last Admin Sodium Chloride 2,000 ml @ 1,000 mls/hr Q2H ONCE IV 02/13/25 17:00 02/13/25 18:59 DC 02/13/25 17:41 Morphine Sulfate 4 mg ONCE ONCE IV 02/13/25 17:00 02/13/25 17:01 DC 02/13/25 17:41 Ondansetron HCl (Zofran) 4 mg ONCE ONCE IV 02/13/25 17:00 02/13/25 17:01 DC 02/13/25 17:41 Piperacillin Sod/ Tazobactam Sod 100 ml @ 100 mls/hr ONCE ONCE IV 02/13/25 19:00 02/13/25 20:06 DC 02/13/25 20:51 PROCEDURE(s): ABPL - CT AB PEL WO CON-NO ORAL OR IV REASON: epig pain, n/v/d ORDER NUMBER(s): [id number], ACCESSION NUMBER(s): [id number] Exam: CT CT AB PEL WO CON-NO ORAL OR IV History: epig pain, n/v/d Comparison Study: None TECHNIQUE: Multidetector CT of the abdomen AND PELVIS without IV contrast. Axial, coronal and sagittal multiplanar reformats were obtained from the axial data set by the technologist. Radiation Dose Information: CT Dose: CTDI volume is 25.84 mGy. Dose-length product is 1330.91 mGy*cm FINDINGS: The lung bases are clear. Partially visualized heart is unremarkable. Mild hepatomegaly Otherwise, liver, spleen, gallbladder, pancreas and right adrenal gland are unremarkable. Focus of calcification over the left adrenal gland which May represent sequela of prior injury/ hemorrhage. Kidneys, ureters and urinary bladder are unremarkable. Uterus and adnexa are unremarkable. Stomach is unremarkable. Small bowel loops are unremarkable. Appendix is unremarkable. Mild wall thickening of the ascending colon with mild rectal wall thickening. The remainder of the large bowel is unremarkable. No evidence of intraperitoneal free air or free fluid. No evidence of aortic aneurysm . No significant lymphadenopathy. Small fat containing umbilical hernia. Nonspecific midline lower back moderate Subcutaneous fat edema. No evidence of acute osseous abnormalities. Foci of the bilateral pelvic bones which represent bone islands/blastic lesions. IMPRESSION: Mild wall thickening of the ascending colon with mild rectal wall thickening. Correlate for mild colitis /inadequate distention. Small fat containing umbilical hernia. EDURE(s): ABDL - ABDOMEN LIMITED REASON: Epigastric and right upper quadrant pain ORDER NUMBER(s): [id number], ACCESSION NUMBER(s): [id number] Procedure: US ABDOMEN LIMITED Study Date and Requested Time: 02/13/2025 07:30 PM History: Epigastric and right upper quadrant pain Comparison: US GALLBLADDER on DOS: 07/23/24 CT abdomen and pelvis 02/14/2024 Technique: Multiple high resolution robb-scale images obtained of the right upper quadrant of the abdomen with color Doppler for evaluation of blood flow and vascularity as indicated. Findings: Liver normal in size, measuring cisterns cm in length, with increased echog enicity and normal contours. No evidence of focal hepatic lesions, intrahepatic or extrahepatic ductal dilatation. Common bile duct is not visualized Cholelithiasis with no evidence of abnormal wall thickening, biliary sludge, or pericholecystic fluid. Negative sonographic Sam's sign. Pancreas is obscured by bowel gas Right kidney measures 11.5 cm in length, with normal contours, echotexture, and cortical thickness. No evidence of hydronephrosis, calculi, cystic or solid renal lesions. Partially visualized inferior vena cava unremarkable. Impression: Cholelithiasis without evidence for acute cholecystitis. Hepatic steatosis. The common bile duct and pancreas are obscured by bowel gas. X-Ray, Labs, Meds, VS Comment 54-year-old female with a history of diabetes, thyroid disease and gallstones complaining of epigastric pain, nausea, vomiting and diarrhea Vitals remarkable for BP 144/87 Exam remarkable for epigastric and right upper quadrant tenderness to palpation Rhythm strip independently interpreted by me: Sinus rhythm, rate 84, no ectopy. CT abdomen and pelvis IMPRESSION: Mild wall thickening of the ascending colon with mild rectal wall thickening. Correlate for mild colitis /inadequate distention. Small fat containing umbilical hernia. Right Upper quadrant ultrasound pending CBC shows WBC 16.1, CMP, lipase, lactate and troponins unremarkable, UA pending Patient treated with the following in the ED: 1 L 0.9 normal saline IV bolus, morphine 4 mg IV, Zofran 4 mg IV, Zosyn 4.5 g IV On re-evaluation, pain has improved. Vitals were stable. Plan is to admit the patient for IV antibiotics, GI evaluation. Images Reviewed?: Images reviewed and evaluated by me Time of 1ST Reevaluation: 17:41 Reevaluation 1ST: Improved Patient Education/Counseling: Diagnosis, Treatment Family Education/Counseling: Diagnosis, Treatment SEPSIS Sepsis Screen Date sepsis recognized/suspect: Feb 13, 2025 Time Sepsis recognized/suspect: 1623 Recent Procedure: No On Antibiotic Therapy: No Respiratory Rate >20: No Heart Rate >90: No Temp<36 C (96.8 F) or >38.3 C: No SBP <90 or MAP <65 mmHG: No New Acute Mental Status Change: No Is the patient on CPAP, BIPAP,: No Physician Orders Troponin-I Hs (02/14/25 00:00) Troponin-I Hs (02/14/25 03:00) Urinalysis (02/13/25 16:46) Ct Ab Pel Wo Con-No Oral Or Iv (02/13/25 16:46) Electrocardigram (02/13/25 16:46) Blood Culture (02/13/25 16:46) Abdomen Limited (02/13/25 18:46) Vital Signs Date Time Temp Pulse Resp B/P (MAP) Pulse Ox O2 Delivery O2 Flow Rate FiO2 02/13/25 17:44 Room Air* 0 21 02/13/25 17:42 97.4 74 14 152/87 (108) 95 97.4 02/13/25 17:41 74 14 152/87 02/13/25 16:23 99.1 84 16 144/87 96 99.1 Laboratory Tests Test 02/13/25 16:56 Lactic Acid Level 1.4 mmol/L (0.4-2.0) White Blood Count 16.1 10^3/uL (4.4-10.8) H Medications Medications Dose Ordered Sig/Tian Route Start Time Stop Time Status Last Admin Dose Admin Morphine Sulfate 4 mg ONCE ONCE IV 02/13/25 17:00 02/13/25 17:01 DC 02/13/25 17:41 Ondansetron HCl 4 mg ONCE ONCE IV 02/13/25 17:00 02/13/25 17:01 DC 02/13/25 17:41 Piperacillin Sod/ Tazobactam Sod 100 ml @ 100 mls/hr ONCE ONCE IV 02/13/25 19:00 02/13/25 20:06 DC 02/13/25 20:51 Sodium Chloride 2,000 ml @ 1,000 mls/hr Q2H ONCE IV 02/13/25 17:00 02/13/25 18:59 DC 02/13/25 17:41 Departure 1 Departure Time of Disposition: 20:00 Impression: Primary Impression: Colitis Disposition: ADMITTED INPATIENT Admit to: Med Surg Condition: Guarded Critical Care Note Critical Care Time?: No Stability Stability form required: No Heart Score Heart Score: Heart Score Response (Comments) Value History N/A 0 EKG N/A 0 Age N/A 0 Risk Factors N/A 0 Troponin N/A 0 Total 0 I personally scribed for ANDREIA CONDE MD ([email or web address]) on 02/13/25 at 16:43. Electronically submitted by Brett Randall ([email or web address]). I personally scribed for ANDREIA CONDE MD ([email or web address]) on 02/13/25 at 17:41. Electronically submitted by Brett Randall ([email or web address]). ANDREIA CONDE MD Feb 13, 2025 16:43
[2025-02-13 17:12] LABS: Hematocrit 45.5 % (36.0-46.0); Hemoglobin 15.8 g/dL (12.2-16.2); Mean Corpuscular Hemoglobin 28.2 pg (28.0-32.0); Mean Corpuscular Volume 81.2 fL (80.0-100.0); Nucleated Red Blood Cells % 0.0 %
[2025-02-13 17:26] LABS: Alanine Aminotransferase 32 U/L (7-40); Albumin 4.7 g/dL (3.2-4.8); Alkaline Phosphatase 98 U/L (46-116); Anion Gap 12 (5-15); BUN/Creatinine Ratio 11.0 (10.0-20.0); Bilirubin, Total 0.5 mg/dL (0.2-1.0); Blood Urea Nitrogen 9 mg/dL (9-23); Carbon Dioxide 26 mmol/L (20-31); Chloride 102 mmol/L (98-107); Lipase 42 U/L (12-53); Potassium 3.9 mmol/L (3.5-5.1); Sodium 140 mmol/L (136-145)
[2025-02-13 17:34] LABS: Calcium 11.0 mg/dL (8.7-10.4); Glucose 184 mg/dL (74-106); Total Protein 8.2 g/dL (5.7-8.2)
--- NOTE | 2025-02-13 17:36 | DVH ---
Exam: CT CT AB PEL WO CON-NO ORAL OR IV History: epig pain, n/v/d Comparison Study: None TECHNIQUE: Multidetector CT of the abdomen AND PELVIS without IV contrast. Axial, coronal and sagitta l multiplanar reformats were obtained from the axial data set by the technologist. Radiation Dose Information: CT Dose: CTDI volume is 25.84 mGy. Dose-length product is 1330.91 mGy*cm FINDINGS: The lung bases are clear. Partially visualized heart is unremarkable. Mild hepatomegaly Otherwise, liver, spleen, gallbladder, pancreas and right adrenal gland are unrema rkable. Focus of calcification over the left adrenal gland which May represent sequela of prior injur y/ hemorrhage. Kidneys, ureters and urinary bladder are unremarkable. Uterus and adnexa are unremarkable. Stomach is unremarkable. Small bowel loops are unremarkable. Appendix is unremarkable. Mild wall thi ckening of the ascending colon with mild rectal wall thickening. The remainder of the large bowel is unremarkable. No evidence of intraperitoneal free air or free fluid. No evidence of aortic aneurysm . No significant lymphadenopathy. Small fat containing umbilical hernia. Nonspecific midline lower back moderate Subcutaneous fat edema . No evidence of acute osseous abnormalities. Foci of the bilateral pelvic bones which represent bone islands/blastic lesions. IMPRESSION: Mild wall thickening of the ascending colon with mild rectal wall thickening. Correlate for mild col itis /inadequate distention. Small fat containing umbilical hernia.
[2025-02-13] MEDS: ONDANSETRON HCL 4 MG/2 ML VIAL IV ONE (17:41)
[2025-02-13] MEDS: MORPHINE SULFATE 4 MG/ML SYR/VIAL IV ONE (17:41)
[2025-02-13] MEDS: SODIUM CHLORIDE 0.9% 2,000 ML IV ONE (17:41)
[2025-02-13] MEDS ORDERED: DEXTROSE (50%) 50ML SYRG IV PRN (19:45)
--- NOTE | 2025-02-13 20:06 | DVH ---
Procedure: US ABDOMEN LIMITED Study Date and Requested Time: 02/13/2025 07:30 PM History: Epigastric and right upper quadrant pain Comparison: US GALLBLADDER on DOS: 07/23/24 CT abdomen and pelvis 02/14/2024 Technique: Multiple high resolution robb-scale images obtained of the right upper quadrant of the abd omen with color Doppler for evaluation of blood flow and vascularity as indicated. Findings: Liver normal in size, measuring cisterns cm in length, with increased echogenicity and normal contour s. No evidence of focal hepatic lesions, intrahepatic or extrahepatic ductal dilatation. Common bile duct is not visualized Cholelithiasis with no evidence of abnormal wall thickening, biliary sludge, or pericholecystic flui d. Negative sonographic Sam's sign. Pancreas is obscured by bowel gas Right kidney measures 11.5 cm in length, with normal contours, echotexture, and cortical thickness. N o evidence of hydronephrosis, calculi, cystic or solid renal lesions. Partially visualized inferior vena cava unremarkable. Impression: Cholelithiasis without evidence for acute cholecystitis. Hepatic steatosis. The common bile duct and pancreas are obscured by bowel gas.
[2025-02-13] MEDS: PIPERACILLIN-TAZO 4.5GM 100 ML IV ONE (20:51)
[2025-02-13 23:08] LABS: Urine Protein, UAD Trace (Negative)
[2025-02-14 00:13] VITALS: TEMP 99.2; O2SAT 94
[2025-02-14] MEDS: ACETAMINOPHEN 325 MG TAB PO PRN (02:15)
[2025-02-14] MEDS: HYDROcodone-ACET 5/325MG TAB PO PRN (02:15)
--- NOTE | 2025-02-14 03:34 | DVHHP2 ---
History of Present Illness Reason for Visit: Abdominal pain History of Present Illness 54-year-old female presents for evaluation of abdominal pain. Patient endorses a one day history of sharp epigastric abdominal pain that is nonradiating and sharp in nature she also reports episodes of nausea with vomiting and watery diarrhea. No fever or chills. No other acute complaints reported. Past Medical History Thyroid disease, diabetes mellitus, gallstones Past Surgical History Tubal ligation Family History Noncontributory Smoke: No ALCOHOL: none Drugs: None Lives: with Family Review of Systems Review of Systems Review of systems are currently negative otherwise addressed in HPI. Allergies: Coded Allergies: NO KNOWN ALLERGIES (Unverified , 11/04/23) Medications Current Medications Medications Dose Ordered Sig/Tian Route Start Time Stop Time Status Last Admin Dose Admin Ceftriaxone Sodium 50 ml @ 100 mls/hr DAILY@09 IV 02/14/25 09:00 Metronidazole 100 ml @ 100 mls/hr Q8HR IV 02/13/25 22:00 02/13/25 02:16 100 MLS/HR Diagnostic Test (Pha) 1 strip ACHS 02/13/25 22:00 02/13/25 01:05 1 STRIP Insulin Human Regular ACHS SC 02/13/25 22:00 02/13/25 02:16 3 UNITS Dextrose 50 ml UD PRN IV 02/13/25 19:45 Acetaminophen/ Hydrocodone Bitart 1 tab Q4HP PRN PO 02/13/25 19:45 02/14/25 02:15 1 TAB Ondansetron HCl 4 mg Q4HP PRN IV 02/13/25 19:45 Acetaminophen 650 mg Q6HP PRN PO 02/13/25 19:45 02/14/25 02:15 650 MG Exam Vital Signs Vital Signs Date Time Temp Pulse Resp B/P (MAP) Pulse Ox O2 Delivery O2 Flow Rate FiO2 02/14/25 00:13 99.2 79 14 138/69 (92) 94 99.2 02/13/25 19:44 Room Air 02/13/25 17:44 0 21 Exam Gen: 54-year-old female in mild distress, morbidly obese. Skin: Warm, dry, normal color and texture, no rash. HEENT: Normocephalic atraumatic, mucous membranes moist and pink. Neck: Cervical and supraclavicular nodes normal without enlargement, trachea is midline, thyroid gland is normal without masses. Pulmonary: Clear to auscultation and percussion bilaterally. Cardiac: Regular rate and rhythm. No murmur Abdomen: Soft, nontender, nondistended, bowel sounds present all 4 quadrants, no guarding, no rigidity, no organomegaly. Extremities: No cyanosis, clubbing, no edema Neuro: Cranial nerves II through XII grossly intact, normal affect and speech, no focal motor deficits. Labs/Xrays ORDERING PHYSICIAN: ANDREIA CONDE MD PROCEDURE(s): ABDL - ABDOMEN LIMITED REASON: Epigastric and right upper quadrant pain ORDER NUMBER(s): [id number], ACCESSION NUMBER(s): [id number] Procedure: US ABDOMEN LIMITED Study Date and Requested Time: 02/13/2025 07:30 PM History: Epigastric and right upper quadrant pain Comparison: US GALLBLADDER on DOS: 07/23/24 CT abdomen and pelvis 02/14/2024 Technique: Multiple high resolution robb-scale images obtained of the right upper quadrant of the abdomen with color Doppler for evaluation of blood flow and vascularity as indicated. Findings: Liver normal in size, measuring cisterns cm in length, with increased echogenicity and normal contours. No evidence of focal hepatic lesions, intrahepatic or extrahepatic ductal dilatation. Common bile duct is not visualized Cholelithiasis with no evidence of abnormal wall thickening, biliary sludge, or pericholecystic fluid. Negative sonographic Sam's sign. Pancreas is obscured by bowel gas Right kidney measures 11.5 cm in length, with normal contours, echotexture, and cortical thickness. No evidence of hydronephrosis, calculi, cystic or solid renal lesions. Partially visualized inferior vena cava unremarkable. Impression: Cholelithiasis without evidence for acute cholecystitis. Hepatic steatosis. The common bile duct and pancreas are obscured by bowel gas. RING PHYSICIAN: ANDREIA CONDE MD PROCEDURE(s): ABPL - CT AB PEL WO CON-NO ORAL OR IV REASON: epig pain, n/v/d ORDER NUMBER(s): [id number], ACCESSION NUMBER(s): [id number] Exam: CT CT AB PEL WO CON-NO ORAL OR IV History: epig pain, n/v/d Comparison Study: None TECHNIQUE: Multidetector CT of the abdomen AND PELVIS without IV contrast. Axial, coronal and sagittal multiplanar reformats were obtained from the axial data set by the technologist. Radiation Dose Information: CT Dose: CTDI volume is 25.84 mGy. Dose-length product is 1330.91 mGy*cm FINDINGS: The lung bases are clear. Partially visualized heart is unremarkable. Mild hepatomegaly Otherwise, liver, spleen, gallbladder, pancreas and right adrenal gland are unremarkable. Focus of calcification over the left adrenal gland which May represent sequela of prior injury/ hemorrhage. Kidneys, ureters and urinary bladder are unremarkable. Uterus and adnexa are unremarkable. Stomach is unremarkable. Small bowel loops are unremarkable. Appendix is unremarkable. Mild wall thickening of the ascending colon with mild rectal wall thickening. The remainder of the large bowel is unremarkable. No evidence of intraperitoneal free air or free fluid. No evidence of aortic aneurysm . No significant lymphadenopathy. Small fat containing umbilical hernia. Nonspecific midline lower back moderate Subcutaneous fat edema. No evidence of acute osseous abnormalities. Foci of the bilateral pelvic bones which represent bone islands/blastic lesions. IMPRESSION: Mild wall thickening of the ascending colon with mild rectal wall thickening. Correlate for mild colitis /inadequate distention. Small fat containing umbilical hernia. Labs Test 02/14/25 01:08 02/14/25 00:19 02/13/25 22:30 02/13/25 16:56 Range/Units POC Glucose 186 H 70-106 mg/dl Troponin I High Sensitivity 3 L </=34 ng/L Urine Color Yellow Yellow Urine Clarity Clear Clear Urine pH 6.0 5.0-9.0 Urine Specific [place] 1.030 1.001-1.035 Urine Protein Trace H Negative Urine Ketones 1+ H Negative Urine Blood Normal Negative /uL Urine Nitrite Negative Negative Urine Bilirubin Negative Negative Urine Urobilinogen Normal Negative mg/dL Urine Leukocyte Esterase Negative Negative /uL Urine Glucose Normal Normal mg/dL White Blood Count 16.1 H 4.4-10.8 10^3/uL Red Blood Count 5.60 H 4.0-5.20 10^6/uL Hemoglobin 15.8 12.2-16.2 g/dL Hematocrit 45.5 36.0-46.0 % Mean Corpuscular Volume 81.2 80.0-100.0 fL Mean Corpuscular Hemoglobin 28.2 28.0-32.0 pg Mean Corpuscular Hemoglobin Concent 34.7 32.0-36.0 g/dL Red Cell Distribution Width 14.7 H 11.8-14.3 % Platelet Count 267 140-450 10^3/uL Mean Platelet Volume 9.9 6.9-10.8 fL Neutrophils (%) (Auto) 88.6 H 37.0-80.0 % Lymphocytes (%) (Auto) 8.1 L 10.0-50.0 % Monocytes (%) (Auto) 2.4 0.0-12.0 % Eosinophils (%) (Auto) 0.1 0.0-7.0 % Basophils (%) (Auto) 0.8 0.0-2.0 % Neutrophils # (Auto) 14.3 H 1.6-8.6 10 ^3/uL Lymphocytes # (Auto) 1.3 0.4-5.4 10 ^3/uL Monocytes # (Auto) 0.4 0-1.3 10 ^3/uL Eosinophils # (Auto) 0 0-0.8 10 ^3/uL Basophils # (Auto) 0.1 0-0.2 10 ^3/uL Nucleated Red Blood Cells 0.0 % Sodium Level 140 136-145 mmol/L Potassium Level 3.9 3.5-5.1 mmol/L Chloride Level 102 98-107 mmol/L Carbon Dioxide Level 26 20-31 mmol/L Anion Gap 12 5-15 Blood Urea Nitrogen 9 9-23 mg/dL Creatinine 0.82 0.550-1.02 mg/dL Glomerular Filtration Rate Calc 85 >90 mL/min BUN/Creatinine Ratio 11.0 10.0-20.0 Serum Glucose 184 H 74-106 mg/dL Lactic Acid Level 1.4 0.4-2.0 mmol/L Calcium Level 11.0 H 8.7-10.4 mg/dL Total Bilirubin 0.5 0.2-1.0 mg/dL Aspartate Amino Transferase (AST) 22 13-40 U/L Alanine Aminotransferase (ALT) 32 7-40 U/L Alkaline Phosphatase 98 46-116 U/L Total Protein 8.2 5.7-8.2 g/dL Albumin 4.7 3.2-4.8 g/dL Lipase 42 12-53 U/L SEPSIS Sepsis Screen Date sepsis recognized/suspect: Feb 13, 2025 Time Sepsis recognized/suspect: 1741 Recent Procedure: No On Antibiotic Therapy: No Respiratory Rate >20: No Heart Rate >90: No Temp<36 C (96.8 F) or >38.3 C: No SBP <90 or MAP <65 mmHG: No New Acute Mental Status Change: No Is the patient on CPAP, BIPAP,: No Physician Orders * Gi Dvh Cattle Tester (02/13/25 19:39) Ceftriaxone 1gm/50ml (Rocephin) (02/14/25 09:00) Metronidazole 500mg/100ml (Flagyl 500mg/ (02/13/25 22:00) Stool Bacterial Culture (02/13/25 19:39) Clostridium Difficile Toxin (02/13/25 19:39) Glucose Blood (Accu-Chek Comfort Curve T (02/13/25 22:00) Insulin R (Human) (Insulin R) (02/13/25 22:00) Dextrose 50% Syringe (02/13/25 19:45) Admit (02/13/25 19:39) Hydrocodone-Acet 5/325mg Tab ([place] 5/32 (02/13/25 19:45) Ondansetron Hcl (Zofran) (02/13/25 19:45) Complete Blood Count (02/14/25 04:00) Condition: Stable (02/13/25 19:39) Acetaminophen Tablet (Tylenol Tablet) (02/13/25 19:45) Clear Liq Diet (02/14/25 Breakfast) Bedrest With Bathroom Privileg (02/13/25 19:39) Vital Signs Date Time Temp Pulse Resp B/P (MAP) Pulse Ox O2 Delivery O2 Flow Rate FiO2 02/14/25 00:13 99.2 79 14 138/69 (92) 94 99.2 02/13/25 20:53 99.7 82 14 140/76 (97) 93 99.7 02/13/25 19:44 74 20 95 Room Air Laboratory Tests Test 02/13/25 16:56 Lactic Acid Level 1.4 mmol/L (0.4-2.0) White Blood Count 16.1 10^3/uL (4.4-10.8) H Medications Medications Dose Ordered Sig/Tian Route Start Time Stop Time Status Last Admin Dose Admin Acetaminophen 650 mg Q6HP PRN PO 02/13/25 19:45 02/14/25 02:15 650 MG Acetaminophen/ Hydrocodone Bitart 1 tab Q4HP PRN PO 02/13/25 19:45 02/14/25 02:15 1 TAB Diagnostic Test (Pha) 1 strip ACHS 02/13/25 22:00 02/13/25 01:05 1 STRIP Insulin Human Regular ACHS SC 02/13/25 22:00 02/13/25 02:16 3 UNITS Metronidazole 100 ml @ 100 mls/hr Q8HR IV 02/13/25 22:00 02/13/25 02:16 100 MLS/HR Morphine Sulfate 4 mg ONCE ONCE IV 02/13/25 17:00 02/13/25 17:01 DC 02/13/25 17:41 4 MG Ondansetron HCl 4 mg ONCE ONCE IV 02/13/25 17:00 02/13/25 17:01 DC 02/13/25 17:41 4 MG Piperacillin Sod/ Tazobactam Sod 100 ml @ 100 mls/hr ONCE ONCE IV 02/13/25 19:00 02/13/25 20:06 DC 02/13/25 20:51 100 MLS/HR Sodium Chloride 2,000 ml @ 1,000 mls/hr Q2H ONCE IV 02/13/25 17:00 02/13/25 18:59 DC 02/13/25 17:41 1,000 MLS/HR Assessment/Plan Assessment/Plan Assessment Acute abdominal pain Acute colitis Leukocytosis Diabetes mellitus Morbid obesity Plan Admit the patient to [facility] to the hospitalist Rocephin/Flagyl Clear liquid diet GI consult Pain management Resume home medications Continue treatment per orders. Plan discussed with: Patient My Orders Orders - JOSE VALLECILLO Procedure Category Date Status Time * Gi Dvh Cattle Tester CONS 02/13/25 Transmitted 19:39 Ceftriaxone 1gm/50ml PHA 02/14/25 In Process (Rocephin) 09:00 Metronidazole PHA 02/13/25 In Process 500mg/100ml (Flagyl 22:00 Stool Bacterial TREVOR 02/13/25 Logged Culture 19:39 Clostridium Difficile TREVOR 02/13/25 Logged Toxin 19:39 Glucose Blood PHA 02/13/25 In Process (Accu-Chek Comfort 22:00 Insulin R (Human) PHA 02/13/25 In Process (Insulin R) 22:00 Dextrose 50% Syringe PHA 02/13/25 In Process 19:45 Admit ADMIT 02/13/25 Transmitted 19:39 Hydrocodone-Acet PHA 02/13/25 In Process 5/325mg Tab ([place]mes 19:45 Ondansetron Hcl PHA 02/13/25 In Process (Zofran) 19:45 Complete Blood Count LAB 02/14/25 Logged 04:00 Condition: Stable HYACINTH 02/13/25 In Process 19:39 Acetaminophen Tablet PHA 02/13/25 In Process (Tylenol Tablet) 19:45 Clear Liq Diet DIET 02/14/25 Transmitted Breakfast Bedrest With Bathroom HYACINTH 02/13/25 In Process Privileg 19:39 Date of Service: Feb 13, 2025 Billing Provider: JOSE VALLECILLO Common Visit Codes: [id number] INP/OBS CARE (HIGH) JOSE VALLECILLO Feb 14, 2025 03:33
[2025-02-14 05:13] LABS: Hematocrit 43.6 % (36.0-46.0); Hemoglobin 14.6 g/dL (12.2-16.2); Mean Corpuscular Hemoglobin 27.9 pg (28.0-32.0); Mean Corpuscular Volume 83.2 fL (80.0-100.0); Nucleated Red Blood Cells % 0.0 %
[2025-02-14] MEDS ORDERED: MORPHINE SULFATE INJ 2 MG/ml SYRG IV PRN ×2 (08:30→08:45)
[2025-02-14 08:51] VITALS: BP 143/83; PULSE 85; RESP 16
[2025-02-14] MEDS: MORPHINE SULFATE INJ 2 MG/ml SYRG IV ONE (08:51)
[2025-02-14] MEDS: ONDANSETRON HCL 4 MG/2 ML VIAL IV PRN (08:52)
--- NOTE | 2025-02-14 13:02 | DVHPN2 ---
Reviewed: H&P Changes from previous H/P or p: No Changes General: Per HPI Objective Vitals Vital Signs Date Time Temp Pulse Resp B/P (MAP) Pulse Ox O2 Delivery O2 Flow Rate FiO2 02/14/25 08:51 85 16 143/83 02/14/25 00:13 99.2 94 99.2 02/13/25 19:44 Room Air 02/13/25 17:44 0 21 Exam Gen: 54-year-old female in mild distress, morbidly obese. Skin: Warm, dry, normal color and texture, no rash. HEENT: Normocephalic atraumatic, mucous membranes moist and pink. Neck: Cervical and supraclavicular nodes normal without enlargement, trachea is midline, thyroid gland is normal without masses. Pulmonary: Clear to auscultation and percussion bilaterally. Cardiac: Regular rate and rhythm. No murmur Abdomen: Soft, nontender, nondistended, bowel sounds present all 4 quadrants, no guarding, no rigidity, no organomegaly. Extremities: No cyanosis, clubbing, no edema Neuro: Cranial nerves II through XII grossly intact, normal affect and speech, no focal motor deficits. Medications Current Medications Medications Dose Ordered Sig/Tian Route Start Time Stop Time Status Last Admin Dose Admin Ceftriaxone Sodium 50 ml @ 100 mls/hr DAILY@09 IV 02/14/25 09:00 02/14/25 09:00 100 MLS/HR Metronidazole 100 ml @ 100 mls/hr Q8HR IV 02/13/25 22:00 02/14/25 06:00 100 MLS/HR Diagnostic Test (Pha) 1 strip ACHS 02/13/25 22:00 02/14/25 10:00 1 STRIP Insulin Human Regular ACHS SC 02/13/25 22:00 02/14/25 10:35 3 UNITS Dextrose 50 ml UD PRN IV 02/13/25 19:45 Acetaminophen/ Hydrocodone Bitart 1 tab Q4HP PRN PO 02/13/25 19:45 02/14/25 02:15 1 TAB Ondansetron HCl 4 mg Q4HP PRN IV 02/13/25 19:45 02/14/25 08:52 4 MG Acetaminophen 650 mg Q6HP PRN PO 02/13/25 19:45 02/14/25 08:52 650 MG Morphine Sulfate 2 mg Q30MIN PRN IV 02/14/25 08:45 02/15/25 08:44 Laboratory Results Laboratory Tests 02/13/25 16:56 02/14/25 04:53 Chemistry Test 02/13/25 16:56 Albumin 4.7 g/dL (3.2-4.8) Calcium Level 11.0 mg/dL (8.7-10.4) H Total Protein 8.2 g/dL (5.7-8.2) Lipid panel Test 02/13/25 16:56 Lipase 42 U/L (12-53) LFT Test 02/13/25 16:56 Alanine Aminotransferase (ALT) 32 U/L (7-40) Alkaline Phosphatase 98 U/L (46-116) Aspartate Amino Transferase (AST) 22 U/L (13-40) Total Bilirubin 0.5 mg/dL (0.2-1.0) Urinalysis Test 02/13/25 22:30 Urine Color Yellow (Yellow) Urine Clarity Clear (Clear) Urine pH 6.0 (5.0-9.0) Urine Specific [place] 1.030 (1.001-1.035) Urine Protein Trace (Negative) H Urine Ketones 1+ (Negative) H Urine Blood Normal /uL (Negative) Urine Nitrite Negative (Negative) Urine Bilirubin Negative (Negative) Urine Urobilinogen Normal mg/dL (Negative) Urine Leukocyte Esterase Negative /uL (Negative) Urine Glucose Normal mg/dL (Normal) Labs and/or images reviewed: Labs reviewed by me, Image(s) reviewed by me Assessment/Plan Assessment/Plan 54-year-old female presents for evaluation of abdominal pain. Patient endorses a one day history of sharp epigastric abdominal pain that is nonradiating and sharp in nature she also reports episodes of nausea with vomiting and watery diarrhea. No fever or chills. No other acute complaints reported. 02/14:. Patient continues to have pain, continuing patient on treatment for colitis GI is consulted. Currently on IV antibiotics ceftriaxone Flagyl, clear liquid diet. gi rec stool cultures. diagnosis: acute colitis, acute intractable abdominal pain, due to above leukocytosis DM t2, morbid abesity, BMI 43.4 plan: iv abx ivf npo, advance to [facility]D prn analgesics, include iv analgesics prn iv antiemetics GI consulted [email or web address] full code Plan discussed with: Patient Date of Service: Feb 14, 2025 Billing Provider: DARRELL KLEIN MD Common Visit Codes: [id number] INP/OBS CARE(HIGH) DARRELL KLEIN MD Feb 14, 2025 13:02
--- NOTE | 2025-02-14 13:10 | DVHINCON2 ---
GI Consult Consult Note GI consult note Date of Consultation: 02/14/2025 Chief Complaint: Colitis Referring Physician: Shaheen SALEH H&P: 54-year-old female seen in ER with complains of abdominal pain, which started Friday at four in the morning. Patient also complains of nausea vomiting, none at this time. No hematemesis. Last episode of loose stool was Friday at 8:00 a.m., none since. Denies melena or red blood in stool. No fevers or chills. No colonoscopy in past Past Medical History: Thyroid disease, diabetes mellitus, gallstones Past Surgical History: Tubal ligation Social History: NO smoking, drinking ETOH and use of illegal drugs. Family History: Noncontributory Review of Systems: Constitutional: no fever, chill, weight loss HEENT: no eye pain, no hearing loss, no oral lesion, no scleral icterus Heart: no chest pain, no chest pressure Lung: no cough, no dyspnea with exertion Abdomen: see HPI Physical exam: General: NAD, AAOX3 Chest: lung hernandez clear to auscultation Heart: RRR, no murmur Abdomen: non-distended, mild epigastric tenderness to palpation, +BS Labs: Labs Test 02/14/25 10:09 02/14/25 04:53 02/13/25 22:30 02/13/25 16:56 Range/Units POC Glucose 194 H 70-106 mg/dl White Blood Count 14.7 H 4.4-10.8 10^3/uL Red Blood Count 5.24 H 4.0-5.20 10^6/uL Hemoglobin 14.6 12.2-16.2 g/dL Hematocrit 43.6 36.0-46.0 % Mean Corpuscular Volume 83.2 80.0-100.0 fL Mean Corpuscular Hemoglobin 27.9 L 28.0-32.0 pg Mean Corpuscular Hemoglobin Concent 33.6 32.0-36.0 g/dL Red Cell Distribution Width 14.8 H 11.8-14.3 % Platelet Count 253 140-450 10^3/uL Mean Platelet Volume 10.0 6.9-10.8 fL Neutrophils (%) (Auto) 76.0 37.0-80.0 % Lymphocytes (%) (Auto) 15.9 10.0-50.0 % Monocytes (%) (Auto) 6.3 0.0-12.0 % Eosinophils (%) (Auto) 0.7 0.0-7.0 % Basophils (%) (Auto) 1.1 0.0-2.0 % Neutrophils # (Auto) 11.2 H 1.6-8.6 10 ^3/uL Lymphocytes # (Auto) 2.3 0.4-5.4 10 ^3/uL Monocytes # (Auto) 0.9 0-1.3 10 ^3/uL Eosinophils # (Auto) 0.1 0-0.8 10 ^3/uL Basophils # (Auto) 0.2 0-0.2 10 ^3/uL Nucleated Red Blood Cells 0.0 % Troponin I High Sensitivity 3 L </=34 ng/L Urine Color Yellow Yellow Urine Clarity Clear Clear Urine pH 6.0 5.0-9.0 Urine Specific [place] 1.030 1.001-1.035 Urine Protein Trace H Negative Urine Ketones 1+ H Negative Urine Blood Normal Negative /uL Urine Nitrite Negative Negative Urine Bilirubin Negative Negative Urine Urobilinogen Normal Negative mg/dL Urine Leukocyte Esterase Negative Negative /uL Urine Glucose Normal Normal mg/dL Sodium Level 140 136-145 mmol/L Potassium Level 3.9 3.5-5.1 mmol/L Chloride Level 102 98-107 mmol/L Carbon Dioxide Level 26 20-31 mmol/L Anion Gap 12 5-15 Blood Urea Nitrogen 9 9-23 mg/dL Creatinine 0.82 0.550-1.02 mg/dL Glomerular Filtration Rate Calc 85 >90 mL/min BUN/Creatinine Ratio 11.0 10.0-20.0 Serum Glucose 184 H 74-106 mg/dL Lactic Acid Level 1.4 0.4-2.0 mmol/L Calcium Level 11.0 H 8.7-10.4 mg/dL Total Bilirubin 0.5 0.2-1.0 mg/dL Aspartate Amino Transferase (AST) 22 13-40 U/L Alanine Aminotransferase (ALT) 32 7-40 U/L Alkaline Phosphatase 98 46-116 U/L Total Protein 8.2 5.7-8.2 g/dL Albumin 4.7 3.2-4.8 g/dL Lipase 42 12-53 U/L Imaging: CT abdomen pelvis IMPRESSION: Mild wall thickening of the ascending colon with mild rectal wall thickening. Correlate for mild colitis /inadequate distention. Small fat containing umbilical hernia. Abdominal ultrasound Impression: Cholelithiasis without evidence for acute cholecystitis. Hepatic steatosis. The common bile duct and pancreas are obscured by bowel gas. Assessment: Abdominal pain Possible colitis Nausea and vomiting improving Diarrhea Cholelithiasis Hepatic steatosis Plan: Discussed with Dr. Machuca Stool for C diff, bacterial culture, WBC, stool occult blood IV antibiotic Advance diet as tolerated We will continue to monitor patient Thank you for this consult Date of Service: Feb 14, 2025 Billing Provider: GRAYSON PRIDE Common Visit Codes: CONSULT ONLY Consultation Codes: [id number] CONSULT <45MIN GRAYSON PRIDE Feb 14, 2025 13:10
--- NOTE | 2025-02-15 10:15 | DVHDS2 ---
Discharge Summary Date of Admission Feb 13, 2025 at 19:39 Date of Discharge: Feb 14, 2025 Labs/Diagnostic Data: Laboratory Results Test 02/14/25 10:09 02/14/25 04:53 02/13/25 22:30 02/13/25 16:56 POC Glucose 194 mg/dl (70-106) White Blood Count 14.7 10^3/uL (4.4-10.8) Red Blood Count 5.24 10^6/uL (4.0-5.20) Hemoglobin 14.6 g/dL (12.2-16.2) Hematocrit 43.6 % (36.0-46.0) Mean Corpuscular Volume 83.2 fL (80.0-100.0) Mean Corpuscular Hemoglobin 27.9 pg (28.0-32.0) Mean Corpuscular Hemoglobin Concent 33.6 g/dL (32.0-36.0) Red Cell Distribution Width 14.8 % (11.8-14.3) Platelet Count 253 10^3/uL (140-450) Mean Platelet Volume 10.0 fL (6.9-10.8) Neutrophils (%) (Auto) 76.0 % (37.0-80.0) Lymphocytes (%) (Auto) 15.9 % (10.0-50.0) Monocytes (%) (Auto) 6.3 % (0.0-12.0) Eosinophils (%) (Auto) 0.7 % (0.0-7.0) Basophils (%) (Auto) 1.1 % (0.0-2.0) Neutrophils # (Auto) 11.2 10 ^3/uL (1.6-8.6) Lymphocytes # (Auto) 2.3 10 ^3/uL (0.4-5.4) Monocytes # (Auto) 0.9 10 ^3/uL (0-1.3) Eosinophils # (Auto) 0.1 10 ^3/uL (0-0.8) Basophils # (Auto) 0.2 10 ^3/uL (0-0.2) Nucleated Red Blood Cells 0.0 % Troponin I High Sensitivity 3 ng/L (</=34) Urine Color Yellow (Yellow) Urine Clarity Clear (Clear) Urine pH 6.0 (5.0-9.0) Urine Specific [place] 1.030 (1.001-1.035) Urine Protein Trace (Negative) Urine Ketones 1+ (Negative) Urine Blood Normal /uL (Negative) Urine Nitrite Negative (Negative) Urine Bilirubin Negative (Negative) Urine Urobilinogen Normal mg/dL (Negative) Urine Leukocyte Esterase Negative /uL (Negative) Urine Glucose Normal mg/dL (Normal) Sodium Level 140 mmol/L (136-145) Potassium Level 3.9 mmol/L (3.5-5.1) Chloride Level 102 mmol/L (98-107) Carbon Dioxide Level 26 mmol/L (20-31) Anion Gap 12 (5-15) Blood Urea Nitrogen 9 mg/dL (9-23) Creatinine 0.82 mg/dL (0.550-1.02) Glomerular Filtration Rate Calc 85 mL/min (>90) BUN/Creatinine Ratio 11.0 (10.0-20.0) Serum Glucose 184 mg/dL (74-106) Lactic Acid Level 1.4 mmol/L (0.4-2.0) Calcium Level 11.0 mg/dL (8.7-10.4) Total Bilirubin 0.5 mg/dL (0.2-1.0) Aspartate Amino Transferase (AST) 22 U/L (13-40) Alanine Aminotransferase (ALT) 32 U/L (7-40) Alkaline Phosphatase 98 U/L (46-116) Total Protein 8.2 g/dL (5.7-8.2) Albumin 4.7 g/dL (3.2-4.8) Lipase 42 U/L (12-53) Other Laboratory Tests 02/14/25 04:53 02/13/25 16:56 Brief Hx & Hospital Course: 54-year-old female presents for evaluation of abdominal pain. Patient endorses a one day history of sharp epigastric abdominal pain that is nonradiating and sharp in nature she also reports episodes of nausea with vomiting and watery diarrhea. No fever or chills. No other acute complaints reported. 02/14:. Patient continues to have pain, continuing patient on treatment for colitis GI is consulted. Currently on IV antibiotics ceftriaxone Flagyl, clear liquid diet. gi rec stool cultures. diagnosis: acute colitis, acute intractable abdominal pain, due to above leukocytosis DM t2, morbid abesity, BMI 43.4 plan: left ama, assumed all risks including Condition at Discharge: Undetermined Final Diagnosis/Problems List acute colitis, acute intractable abdominal pain, due to above leukocytosis DM t2, morbid abesity, BMI 43.4 Discharge Disposition: AMA Discharge Instruct/Medications Scheduled Aspirin (Aspirin 81), 81 MG OR BID Cephalexin (Keflex Capsule), 500 MG PO TID Metformin Hydrochloride (Metformin Hcl), 500 MG PO IBID, (Reported) Oxycodone HCl (Oxycontin), 20 MG PO BID, (Reported) Polyethylene Glycol 3350 (Miralax), 17 GM PO QAM Discharge Statement: "Patient was advised to return to the ER or call 911 if any headaches, dizziness, shortness of breath, chest pain, abdominal pain, bleeding, fevers, or worsening of medical condition. Patient was counseled about treatment plan, medications, possible side effects, patientverbalized understanding. All questions were answered to the best of my ability. This discharge took greater then 30 minutes in planning, reviewing documentation, counseling the patient, and discussing with other team members." ASSESSMENT ASSESSMENT Assessment Date of Service: Feb 14, 2025 Billing Provider: DARRELL KLEIN MD Common Visit Codes: NOT BILLABLE DARRELL KLEIN MD Feb 15, 2025 10:15
== END 2025-02-14 21:05 | disposition left against medical advice (07) | DRG 249 ==
LOC: ER 16:21 → OVERFLOW 19:39
PROVIDERS: ADMIT Student in an Organized Health Care Education/Training Program; ATTEND Student in an Organized Health Care Education/Training Program
DX: A09 Infectious gastroenteritis and colitis, unspecified (principal); D72.829 Elevated white blood cell count, unspecified; E11.9 Type 2 diabetes mellitus without complications; E66.01 Morbid (severe) obesity due to excess calories; K76.0 Fatty (change of) liver, not elsewhere classified; Z53.29 Procedure and treatment not carried out because of patient's decision for other reasons; K80.20 Calculus of gallbladder without cholecystitis without obstruction; Z79.899 Other long term (current) drug therapy; Z79.82 Long term (current) use of aspirin; Z79.4 Long term (current) use of insulin; Z98.51 Tubal ligation status; Z68.41 Body mass index [BMI] 40.0-44.9, adult; Z79.84 Long term (current) use of oral hypoglycemic drugs
CPT/HCPCS: 36415; 74176; 76705; 80053; 81003; 82962; 83605; 83690; 84484; 85025; 87040; 96365; 96375; G0378; J1815; J2405; J2543; J3490